=== PATIENT | male | born 1955 | race African-American/Black ===

== ENCOUNTER 2016-06-01 10:36 | Inpatient (IN) | payer OTHER ==
[~2016-06-01] VITALS: Ht 157.5 cm; Wt 100.1 kg
[~2016-06-01 10:36] MED LIST: ADVAIR 250/501 DISK IH; ADVAIR HFA120 INHALA IH; AMIODARONE HCL200 MG PO; ATORVASTATIN CA40 MG PO; BISOPROLOL FUMAR5 MG PO; CALCITRIOL0.25 MCG PO; CARDIZEM CD120 MG PO; CLONIDINE HCL0.1 MG PO; DILTIAZEM 24HR360 M1 PO; FELODIPINE ER5 MG PO; FLONASE16 G1 BOTH NARES; HUMALOG100 UNIT/1 SC; HUMALOG100 UNIT/2 SC; KLOR-CON 1010 ME1 PO; LANTUS 3 M100 UNITS1 SC; LASIX40 MG PO; LEVEMIR100 UNIT/2 SC; LOPRESSOR100 M1 PO; MONTELUKAST SOD10 MG PO; NEURONTIN300 MG PO; PREDNISONE10 MG PO; PREDNISONE50 MG PO; PROAIR HFA8.5 GM IH; PROVENTIL,2.5 MG/3 M IH; SPIRIVA RESPIMAT4 GM IH; XARELTO15 MG PO
[2016-06-01] MEDS ORDERED: BUMETANIDE0.5 MG PO (11:27)
[2016-06-01] MEDS ORDERED: LANTUS 10100 UNITS/ SC (11:28)
[2016-06-01] MEDS ORDERED: HUMALOG100 UNIT/1 SC ×4 (11:28→11:29)
[2016-06-01] MEDS ORDERED: POTASSIUM CHLO10 ME4 PO (11:29)
[2016-06-01 12:05] LABS: HEMATOCRIT 34.1 % (38.0-50.0); MCH 27.5 PG (29.0-34.0); MCHC 31.7 G/DL (30.0-36.0); MCV 86.8 FL (86-99); MEAN PLAT.VOLUME 10.9 uM^3 (9.0-12.4); PLATELET COUNT 168 K/uL (156-360); RBC DIS.WIDTH-CV 18.7 % (11.8-14.6); RBC DIS.WIDTH-SD 58.1 % (39-53); RED BLOOD COUNT 3.93 M/uL (4.00-5.50); WHITE BLOOD COUNT 5.3 K/uL (4.1-10.2)
[2016-06-01 12:24] LABS: CHLORIDE 104 mEq/L (99-109)
[2016-06-01 12:25] LABS: POTASSIUM 5.3 mEq/L (3.7-5.4); SODIUM 139 mEq/L (136-147)
[2016-06-01 12:26] LABS: GLUCOSE 164 mg/dL (70-99)
[2016-06-01 12:28] LABS: ANION GAP 9 MEQ/L (2-14)
[2016-06-01 12:30] LABS: GFR ESTIMATE (CALCULATED) 27 mL/min/
[2016-06-01 12:31] LABS: UREA NITROGEN (BUN) 52 mg/dL (9-23)
[2016-06-01 12:33] LABS: TROP-I INTERPRETATION NEGATIVE; TROPONIN-I 0.07 ng/mL (0.0-0.30)
[2016-06-01 12:37] LABS: BASE EXCESS 1.3 mEq/L (-3 to +3); BICARBONATE 25.9 mEq/L (22-26); CARBOXY HGB 2.3 % (0-5); METHEMOGLOBIN 0.8 % (0-1.5); PO2 75 mm Hg (80-100); pH 7.42 (7.35-7.45)
[2016-06-01 12:38] LABS: COMMENTS - BLOOD GASES A+C+; DEVICE NC; PCO2 40 mm Hg (35-45); SITE LR
[2016-06-01 12:39] LABS: MODE NC; O2 FLOW 5 L/MIN; TOTAL RESP RATE 23 resp/min
[2016-06-01 18:55] LABS: POINT-OF-CARE METER ID UU13113702
[2016-06-01 19:34] VITALS: BP 111/81
[2016-06-01 20:18] VITALS: BP 153/85
[2016-06-01 23:14] LABS: ADD MIUA? YES; BILIRUBIN NEGATIVE; BLOOD NEGATIVE; COLOR YELLOW ((YELLOW)); GLUCOSE (STRIP) NEGATIVE; KETONES NEGATIVE; LEUKOCYTES SMALL; NITRITE NEGATIVE; PROTEIN (STRIP) 100; SPECIFIC GRAVITY 1.021 (1.000-1.030); UROBILINOGEN 0.2 MG/DL (0.2-1.0)
[2016-06-01 23:18] VITALS: BP 148/86
[2016-06-01 23:29] LABS: BACTERIA 1+; CASTS PRESENT /LPF; CRYSTALS NONE SEEN; EPITHELIAL CELLS RARE; HYALINE CASTS 30-35 /LPF; MUCUS 1+; RED BLOOD CELLS NONE SEEN /HPF (0-5); UCUL ADDED? NO
[2016-06-02 03:18] LABS: UR CREATININE CONCENTRATION 128.8 MG/DL
[2016-06-02 03:45] VITALS: BP 165/82
[2016-06-02 05:48] LABS: URINE TOTAL PROTEIN 86 MG/DL (0-10)
[2016-06-02 06:45] LABS: MCH 27.6 PG (29.0-34.0); MCHC 32.4 G/DL (30.0-36.0); MCV 85.2 FL (86-99); MEAN PLAT.VOLUME 11.1 uM^3 (9.0-12.4); PLATELET COUNT 173 K/uL (156-360); RBC DIS.WIDTH-CV 18.3 % (11.8-14.6); RBC DIS.WIDTH-SD 57.2 % (39-53); RED BLOOD COUNT 3.99 M/uL (4.00-5.50); WHITE BLOOD COUNT 5.8 K/uL (4.1-10.2)
[2016-06-02 07:08] LABS: C3 COMPLEMENT 129 MG/DL (58-170); C4 COMPLEMENT 38 MG/DL (10-40)
[2016-06-02 07:08] LABS: ANION GAP 10 MEQ/L (2-14); CHLORIDE 103 MEQ/L (99-109); CREATINE KINASE 289 IU/L (1-294); GFR ESTIMATE (CALCULATED) 28 mL/min/; IRON 16 MCG/DL (35-150); POTASSIUM 4.3 MEQ/L (3.7-5.4); SAMPLE HEMOLYSIS CHECK 0; SAMPLE ICTERIC CHECK 0; SAMPLE LIPEMIA CHECK 0; SODIUM 141 MEQ/L (136-147); UREA NITROGEN (BUN) 56 mg/dL (9-23)
[2016-06-02 07:17] LABS: GLUCOSE 49 mg/dL (70-99)
[2016-06-02 07:20] LABS: Estimated Average Glucose 229 mg/dL (70-123); HEMOGLOBIN A1c (GLYCOHEMOGLOB) 9.6 % HGB (Below 5.7)
[2016-06-02 08:48] LABS: INTACT PARATHYROID HORMONE 163 pg/mL (10-69)
[2016-06-02 08:50] VITALS: BP 164/90
[2016-06-02 10:41] VITALS: BP 141/87
[2016-06-02 12:43] LABS: HPCA INDEX 0.12
[2016-06-02 12:44] LABS: POINT-OF-CARE METER ID UU13113725
[2016-06-02 12:44] LABS: AHBS INDEX 0; HEPATITIS B SURFACE ANTIBODY Nonreactive
[2016-06-02 13:53] LABS: HBSG INDEX 0.16
[2016-06-02 15:53] VITALS: BP 112/65
[2016-06-02 16:07] LABS: POINT-OF-CARE METER ID UU13113725
[2016-06-02 21:00] VITALS: BP 114/85
[2016-06-02 23:25] VITALS: BP 125/80
[2016-06-03 04:24] VITALS: BP 99/57
[2016-06-03 06:28] LABS: POINT-OF-CARE METER ID UU13113725
[2016-06-03 06:54] LABS: POINT-OF-CARE METER ID UU13113725
[2016-06-03 07:12] LABS: POINT-OF-CARE METER ID UU13113725
[2016-06-03 07:17] LABS: MCH 27.8 PG (29.0-34.0); MCHC 32.1 G/DL (30.0-36.0); MCV 86.6 FL (86-99); PLATELET COUNT 155 K/uL (156-360); RBC DIS.WIDTH-CV 18.5 % (11.8-14.6); RBC DIS.WIDTH-SD 58.6 % (39-53); RED BLOOD COUNT 3.81 M/uL (4.00-5.50); WHITE BLOOD COUNT 5.7 K/uL (4.1-10.2)
[2016-06-03 07:27] LABS: EOSINOPHIL (%) 1.8 % (0-5); EOSINOPHIL COUNT 0.1 K/uL (0-0.3); IMMATURE GRANULOCYTE (%) 0.2 % (0.0-0.7); LYMPHOCYTE COUNT 0.9 K/uL (1.0-2.8); MONOCYTE (%) 28.2 % (3-12); MONOCYTE COUNT 1.6 K/uL (0-0.8); NEUTROPHIL (%) 53.1 % (45-76)
[2016-06-03 07:37] VITALS: BP 112/58
[2016-06-03 07:45] LABS: ALKALINE PHOSPHATASE 107 IU/L (3-129); ANION GAP 9 MEQ/L (2-14); CHLORIDE 104 MEQ/L (99-109); GFR ESTIMATE (CALCULATED) 25 mL/min/; GLUCOSE 64 mg/dL (70-99); POTASSIUM 4.9 MEQ/L (3.7-5.4); SAMPLE HEMOLYSIS CHECK 0; SAMPLE ICTERIC CHECK 0; SAMPLE LIPEMIA CHECK 0; SODIUM 140 MEQ/L (136-147); TOTAL BILIRUBIN 0.6 MG/DL (0.0-1.0); UREA NITROGEN (BUN) 64 mg/dL (9-23)
[2016-06-03 08:28] LABS: HEMATOLOGY COMMENT 1 SMEAR COMPATIBLE; USER ID SDF
[2016-06-03 10:51] VITALS: BP 139/80
[2016-06-03] MEDS ORDERED: FLONASE16 G1 BOTH NARES (12:12)
[2016-06-03] MEDS ORDERED: AMIODARONE HCL200 MG PO (12:12)
[2016-06-03 16:52] VITALS: BP 142/91
[2016-06-03 17:01] LABS: POINT-OF-CARE METER ID UU13113725
[2016-06-03 19:41] VITALS: BP 140/89
[2016-06-03 21:40] LABS: POINT-OF-CARE METER ID UU13113725
[2016-06-03 23:25] VITALS: BP 136/81
[2016-06-04 04:02] VITALS: BP 154/100
[2016-06-04 06:02] VITALS: BP 153/92
[2016-06-04 06:15] LABS: POINT-OF-CARE METER ID UU13113725
[2016-06-04 06:56] LABS: POINT-OF-CARE METER ID UU13113725
[2016-06-04 07:21] LABS: MCH 27.3 PG (29.0-34.0); MCHC 31.8 G/DL (30.0-36.0); MCV 85.7 FL (86-99); MEAN PLAT.VOLUME 11.1 uM^3 (9.0-12.4); PLATELET COUNT 165 K/uL (156-360); RBC DIS.WIDTH-CV 18.6 % (11.8-14.6); RBC DIS.WIDTH-SD 58.9 % (39-53); RED BLOOD COUNT 3.85 M/uL (4.00-5.50); WHITE BLOOD COUNT 6.8 K/uL (4.1-10.2)
[2016-06-04 07:41] LABS: ANION GAP 9 MEQ/L (2-14); CHLORIDE 101 MEQ/L (99-109); GFR ESTIMATE (CALCULATED) 27 mL/min/; GLUCOSE 61 mg/dL (70-99); POTASSIUM 4.5 MEQ/L (3.7-5.4); SAMPLE HEMOLYSIS CHECK 0; SAMPLE ICTERIC CHECK 0; SAMPLE LIPEMIA CHECK 0; SODIUM 141 MEQ/L (136-147); UREA NITROGEN (BUN) 69 mg/dL (9-23)
[2016-06-04 07:56] LABS: POINT-OF-CARE METER ID UU13113725
[2016-06-04 08:04] LABS: BASE EXCESS 3.7 mEq/L (-3 to +3); BICARBONATE 30.9 mEq/L (22-26); METHEMOGLOBIN 1.3 % (0-1.5); PCO2 60 mm Hg (35-45); PO2 69 mm Hg (80-100); SITE RR; pH 7.32 (7.35-7.45)
[2016-06-04 08:05] LABS: COMMENTS - BLOOD GASES A+C+; DEVICE NC; O2 FLOW 3 L/MIN; TOTAL RESP RATE 12 resp/min
[2016-06-04 08:13] VITALS: BP 152/100
[2016-06-04 08:16] LABS: ALKALINE PHOSPHATASE 113 IU/L (3-129); TOTAL BILIRUBIN 0.6 MG/DL (0.0-1.0)
[2016-06-04 09:30] VITALS: BP 162/59
[2016-06-04 21:19] LABS: POINT-OF-CARE METER ID UU13113725
[2016-06-04 22:13] LABS: POINT-OF-CARE METER ID UU13113725
[2016-06-04 22:55] VITALS: BP 151/83
[2016-06-04 23:22] LABS: POINT-OF-CARE METER ID UU13113725
[2016-06-05 06:26] LABS: POINT-OF-CARE METER ID UU13113725
[2016-06-05 07:29] LABS: ANION GAP 7 MEQ/L (2-14); CHLORIDE 100 MEQ/L (99-109); GFR ESTIMATE (CALCULATED) 28 mL/min/; POTASSIUM 3.6 MEQ/L (3.7-5.4); SAMPLE HEMOLYSIS CHECK 0; SAMPLE ICTERIC CHECK 0; SAMPLE LIPEMIA CHECK 0; SODIUM 141 MEQ/L (136-147); UREA NITROGEN (BUN) 65 mg/dL (9-23)
[2016-06-05 07:31] LABS: GLUCOSE 134 mg/dL (70-99)
[2016-06-05 08:00] VITALS: BP 155/99
[2016-06-05 17:27] VITALS: BP 143/77
[2016-06-05 21:14] LABS: POINT-OF-CARE METER ID UU13113725
[2016-06-05 23:30] VITALS: BP 134/68
[2016-06-06 06:16] LABS: POINT-OF-CARE METER ID UU13113725
[2016-06-06 07:11] LABS: HEMATOCRIT 32.5 % (38.0-50.0); MCH 26.8 PG (29.0-34.0); MCHC 31.7 G/DL (30.0-36.0); MCV 84.4 FL (86-99); MEAN PLAT.VOLUME 10.7 uM^3 (9.0-12.4); PLATELET COUNT 154 K/uL (156-360); RBC DIS.WIDTH-CV 18.1 % (11.8-14.6); RBC DIS.WIDTH-SD 56.2 % (39-53); RED BLOOD COUNT 3.85 M/uL (4.00-5.50); WHITE BLOOD COUNT 7.1 K/uL (4.1-10.2)
[2016-06-06 07:23] LABS: EOSINOPHIL (%) 0.7 % (0-5); EOSINOPHIL COUNT 0.1 K/uL (0-0.3); IMMATURE GRANULOCYTE (%) 0.1 % (0.0-0.7); LYMPHOCYTE COUNT 1.6 K/uL (1.0-2.8); MONOCYTE (%) 12.5 % (3-12); MONOCYTE COUNT 0.9 K/uL (0-0.8); NEUTROPHIL (%) 64.3 % (45-76); NEUTROPHIL COUNT 4.6 K/uL (1.8-6.4)
[2016-06-06 07:35] LABS: ANION GAP 10 MEQ/L (2-14); CHLORIDE 99 MEQ/L (99-109); POTASSIUM 3.2 MEQ/L (3.7-5.4); SAMPLE HEMOLYSIS CHECK 0; SAMPLE ICTERIC CHECK 0; SAMPLE LIPEMIA CHECK 0; SODIUM 144 MEQ/L (136-147)
[2016-06-06 07:46] LABS: ALKALINE PHOSPHATASE 104 IU/L (3-129); ANION GAP 10 MEQ/L (2-14); CHLORIDE 99 MEQ/L (99-109); POTASSIUM 3.3 MEQ/L (3.7-5.4); SAMPLE HEMOLYSIS CHECK 0; SAMPLE ICTERIC CHECK 0; SAMPLE LIPEMIA CHECK 0; SODIUM 144 MEQ/L (136-147); UREA NITROGEN (BUN) 57 mg/dL (9-23)
[2016-06-06 07:47] LABS: GFR ESTIMATE (CALCULATED) 34 mL/min/; GFR ESTIMATE (CALCULATED) 36 mL/min/; GLUCOSE 82 mg/dL (70-99); TOTAL BILIRUBIN 0.9 MG/DL (0.0-1.0); UREA NITROGEN (BUN) 57 mg/dL (9-23)
[2016-06-06 07:48] LABS: GLUCOSE 82 mg/dL (70-99)
[2016-06-06 08:11] VITALS: BP 136/69
[2016-06-06 16:00] VITALS: BP 146/71
[2016-06-06 20:48] LABS: POINT-OF-CARE METER ID UU13113725
[2016-06-06 23:16] VITALS: BP 156/84
[2016-06-07 06:20] LABS: HEMATOCRIT 35.3 % (38.0-50.0); MCH 26.6 PG (29.0-34.0); MCHC 31.2 G/DL (30.0-36.0); MCV 85.5 FL (86-99); MEAN PLAT.VOLUME 10.2 uM^3 (9.0-12.4); PLATELET COUNT 155 K/uL (156-360); RBC DIS.WIDTH-CV 18.3 % (11.8-14.6); RBC DIS.WIDTH-SD 56.6 % (39-53); RED BLOOD COUNT 4.13 M/uL (4.00-5.50); WHITE BLOOD COUNT 7.4 K/uL (4.1-10.2)
[2016-06-07 06:53] LABS: EOSINOPHIL (%) 1.8 % (0-5); EOSINOPHIL COUNT 0.1 K/uL (0-0.3); IMMATURE GRANULOCYTE (%) 0.3 % (0.0-0.7); MONOCYTE (%) 25.6 % (3-12); MONOCYTE COUNT 1.9 K/uL (0-0.8); NEUTROPHIL (%) 58.6 % (45-76); NEUTROPHIL COUNT 4.3 K/uL (1.8-6.4)
[2016-06-07 06:56] LABS: ALKALINE PHOSPHATASE 106 IU/L (3-129); ANION GAP 11 MEQ/L (2-14); ANION GAP 13 MEQ/L (2-14); CHLORIDE 96 MEQ/L (99-109); CHLORIDE 97 MEQ/L (99-109); GFR ESTIMATE (CALCULATED) 36 mL/min/; MAGNESIUM 1.8 mg/dl (1.3-2.7); SAMPLE HEMOLYSIS CHECK 0; SAMPLE ICTERIC CHECK 0; SAMPLE LIPEMIA CHECK 0; SODIUM 141 MEQ/L (136-147); SODIUM 143 MEQ/L (136-147); UREA NITROGEN (BUN) 56 mg/dL (9-23)
[2016-06-07 06:59] LABS: GLUCOSE 150 mg/dL (70-99); GLUCOSE 151 mg/dL (70-99); TOTAL BILIRUBIN 1.1 MG/DL (0.0-1.0)
[2016-06-07 08:27] VITALS: BP 145/75
[2016-06-07 08:48] LABS: HEMATOLOGY COMMENT 1 SMEAR COMPATIBLE; USER ID LYM
[2016-06-07 11:30] LABS: POINT-OF-CARE METER ID UU13113725
[2016-06-07] MEDS ORDERED: BUMETANIDE1 MG PO (14:59)
[2016-06-07] MEDS ORDERED: K-DUR20 MEQ PO (14:59)
[2016-06-07] MEDS ORDERED: LISINOPRIL2.5 MG PO (14:59)
[2016-06-07] MEDS ORDERED: LOPRESSOR50 MG PO (14:59)
[2016-06-07] MEDS ORDERED: HYDRALAZINE HCL25 MG PO (15:07)
[2016-06-07] MEDS ORDERED: METOLAZONE2.5 MG PO ×2 (16:38→16:40)
== END 2016-06-07 17:58 | disposition home or self-care (01) | DRG 682 ==
LOC: EME 10:36 → 5EAST 13:51 → EDOF 13:51 → 5EAST 19:53
PROVIDERS: Internal Medicine; Nurse Practitioner Adult Health; Nurse Practitioner Family; Pediatrics; Physician Assistant
DX: N17.9 Acute kidney failure, unspecified (principal); I50.33 Acute on chronic diastolic (congestive) heart failure; I13.0 Hypertensive heart and chronic kidney disease with heart failure and stage 1 through stage 4 chronic kidney disease, or unspecified chronic kidney disease; I48.2 Chronic atrial fibrillation; E87.79 Other fluid overload; E11.22 Type 2 diabetes mellitus with diabetic chronic kidney disease; E11.65 Type 2 diabetes mellitus with hyperglycemia; E11.319 Type 2 diabetes mellitus with unspecified diabetic retinopathy without macular edema; E11.40 Type 2 diabetes mellitus with diabetic neuropathy, unspecified; I27.2 Other secondary pulmonary hypertension; Z99.81 Dependence on supplemental oxygen; F17.210 Nicotine dependence, cigarettes, uncomplicated; I25.10 Atherosclerotic heart disease of native coronary artery without angina pectoris; J44.9 Chronic obstructive pulmonary disease, unspecified; G47.30 Sleep apnea, unspecified; N18.3 Chronic kidney disease, stage 3 (moderate); D63.1 Anemia in chronic kidney disease; E78.5 Hyperlipidemia, unspecified; Z86.73 Personal history of transient ischemic attack (TIA), and cerebral infarction without residual deficits; Z79.4 Long term (current) use of insulin; Z90.49 Acquired absence of other specified parts of digestive tract
CPT/HCPCS: 36600; 71020; 80048; 80053; 80069; 81003; 82272; 82306; 82550; 82570; 82607; 82746; 82803; 82948; 83036; 83540; 83735; 83970; 84156; 84443; 84466; 84484; 85025; 85027; 86021 90; 86160; 86334; 86335; 86706; 86803; 87340; 93005; 93306; 94640; 94640 76; 94660; 94799; 99202; 99281; 99285; J1815; J1940; J2405

== ENCOUNTER 2016-09-14 12:12 | Inpatient (IN) | payer OTHER ==
[~2016-09-14] VITALS: Ht 157.5 cm; Wt 115.0 kg
[~2016-09-14 12:12] MED LIST changes: +BUMETANIDE0.5 MG PO; +BUMETANIDE1 MG PO; +HYDRALAZINE HCL25 MG PO; +K-DUR20 MEQ PO; +LANTUS 10100 UNITS/ SC; +LISINOPRIL2.5 MG PO; +LOPRESSOR50 MG PO; +METOLAZONE2.5 MG PO; +POTASSIUM CHLO10 ME4 PO
[2016-09-14 14:01] LABS: HEMATOCRIT 34.2 % (38.0-50.0); MCH 27.5 PG (29.0-34.0); MCHC 31.3 G/DL (30.0-36.0); MCV 87.9 FL (86-99); MEAN PLAT.VOLUME 11.7 uM^3 (9.0-12.4); PLATELET COUNT 144 K/uL (156-360); RBC DIS.WIDTH-CV 21.1 % (11.8-14.6); RBC DIS.WIDTH-SD 65.7 % (39-53); RED BLOOD COUNT 3.89 M/uL (4.00-5.50); WHITE BLOOD COUNT 6.4 K/uL (4.1-10.2)
[2016-09-14 14:09] LABS: CHLORIDE 106 mEq/L (99-109); POTASSIUM 5.4 mEq/L (3.7-5.4); SODIUM 137 mEq/L (136-147)
[2016-09-14 14:13] LABS: ANION GAP 8 MEQ/L (2-14); GLUCOSE 401 mg/dL (70-99)
[2016-09-14 14:14] LABS: TOTAL BILIRUBIN 2.2 mg/dL (0.0-1.0)
[2016-09-14 14:15] LABS: ALKALINE PHOSPHATASE 101 IU/L (3-129); GFR ESTIMATE (CALCULATED) 42 mL/min/
[2016-09-14 14:16] LABS: UREA NITROGEN (BUN) 25 mg/dL (9-23)
[2016-09-14 14:19] LABS: LIPASE 10 U/L (1.0-51.0)
[2016-09-14 16:18] LABS: ADD MIUA? YES; BILIRUBIN NEGATIVE; BLOOD NEGATIVE; COLOR YELLOW ((YELLOW)); GLUCOSE (STRIP) >=500; KETONES NEGATIVE; LEUKOCYTES NEGATIVE; NITRITE NEGATIVE; PROTEIN (STRIP) >=500; SPECIFIC GRAVITY 1.012 (1.000-1.030); UROBILINOGEN 0.2 MG/DL (0.2-1.0)
[2016-09-14 16:41] LABS: AMORPHOUS URATES CRYSTALS 2+; BACTERIA 2+ /HPF; EPITHELIAL CELLS 2+ /HPF; MUCUS NONE SEEN /LPF; RED BLOOD CELLS 0-5 /HPF (0-5); UCUL ADDED? NO; WHITE BLOOD CELLS 0-5 /HPF (0-5)
[2016-09-14 17:40] LABS: BASE EXCESS -3.5 mEq/L (-3 to +3); METHEMOGLOBIN 0.9 % (0-1.5); PCO2 57 mm Hg (35-45); PO2 63 mm Hg (80-100)
[2016-09-14 17:41] LABS: BICARBONATE 24.4 mEq/L (22-26); COMMENTS - BLOOD GASES A+C+; DEVICE NC; O2 FLOW 3 L/MIN; SITE RR; TOTAL RESP RATE 13 resp/min; pH 7.24 (7.35-7.45)
[2016-09-14 18:00] LABS: TROP-I INTERPRETATION NEGATIVE
[2016-09-14 19:35] LABS: POINT-OF-CARE METER ID UU13113702
[2016-09-14] MEDS ORDERED: HALOBETASOL PRO15 GM TP (21:05)
[2016-09-14] MEDS ORDERED: CLINDAMYCIN PHO60 M1 TP (21:06)
[2016-09-14] MEDS ORDERED: TRAMADOL HCL50 MG PO (21:07)
[2016-09-14] MEDS ORDERED: BUMETANIDE1 MG PO (21:10)
[2016-09-14] MEDS ORDERED: BUMETANIDE0.5 MG PO (21:11)
[2016-09-14 21:17] VITALS: BP 144/62
[2016-09-14 21:45] VITALS: BP 131/98
[2016-09-14 22:00] VITALS: BP 126/82
[2016-09-14 22:09] LABS: BASE EXCESS -9.3 mEq/L (-3 to +3); BICARBONATE 17.6 mEq/L (22-26); CARBOXY HGB 2.7 % (0-5); METHEMOGLOBIN 1.4 % (0-1.5); PCO2 41 mm Hg (35-45); PO2 175 mm Hg (80-100); SITE RR; pH 7.24 (7.35-7.45)
[2016-09-14 22:10] LABS: COMMENTS - BLOOD GASES C+; DEVICE VENT; FI02 100 %; INSPIRATION TIME 0.9 seconds; MECHANICAL RATE 20 resp/min; MODE AC/VC+; PEEP 5 CM/H20; TOTAL RESP RATE 20 resp/min
[2016-09-14 22:30] VITALS: BP 116/92
[2016-09-14 23:00] VITALS: BP 114/79
[2016-09-14 23:52] LABS: METH RESISTANT S AUREUS PCR NEGATIVE (NEGATIVE)
[2016-09-14 23:57] LABS: PROBE CHECK PASS; SPECIMEN PROCESSING CONTROL PASS
[2016-09-15] VITALS (18 sets, daily range): BP systolic 95–157; BP diastolic 61–99
[2016-09-15 00:36] LABS: POINT-OF-CARE METER ID UU13113731; POINT-OF-CARE USER ID RADDRS44
[2016-09-15 05:48] LABS: POINT-OF-CARE METER ID UU13113731; POINT-OF-CARE USER ID RADDRS44
[2016-09-15 05:56] LABS: BASE EXCESS -2.5 mEq/L (-3 to +3); BICARBONATE 22.5 mEq/L (22-26); CARBOXY HGB 2.7 % (0-5); METHEMOGLOBIN 1.4 % (0-1.5); PCO2 39 mm Hg (35-45); PO2 79 mm Hg (80-100); SITE RR; pH 7.37 (7.35-7.45)
[2016-09-15 05:57] LABS: COMMENTS - BLOOD GASES C+; DEVICE VENT; FI02 60 %; INSPIRATION TIME 0.9 seconds; MECHANICAL RATE 20 resp/min; MODE ACVC+; PEEP 5 CM/H20; TIDAL VOLUME 500 ML; TOTAL RESP RATE 20 resp/min
[2016-09-15 06:23] LABS: HEMATOCRIT 34.5 % (38.0-50.0); MCH 27.1 PG (29.0-34.0); MCHC 30.4 G/DL (30.0-36.0); MCV 89.1 FL (86-99); MEAN PLAT.VOLUME 11.2 uM^3 (9.0-12.4); NRBC (%) 0.3 /100 WBC (0-0); PLATELET COUNT 129 K/uL (156-360); RBC DIS.WIDTH-CV 21.2 % (11.8-14.6); RED BLOOD COUNT 3.87 M/uL (4.00-5.50)
[2016-09-15 06:25] LABS: WHITE BLOOD COUNT 10.6 K/uL (4.1-10.2)
[2016-09-15 06:41] LABS: ANION GAP 8 MEQ/L (2-14); CHLORIDE 110 MEQ/L (99-109); GLUCOSE 247 mg/dL (70-99); MAGNESIUM 1.6 mg/dl (1.3-2.7); SAMPLE HEMOLYSIS CHECK 0; SAMPLE ICTERIC CHECK 0; SAMPLE LIPEMIA CHECK 0; SODIUM 142 MEQ/L (136-147); UREA NITROGEN (BUN) 30 mg/dL (9-23)
[2016-09-15 06:42] LABS: GFR ESTIMATE (CALCULATED) 27 mL/min/; POTASSIUM 4.2 MEQ/L (3.7-5.4)
[2016-09-15 06:46] LABS: TROP-I INTERPRETATION INDETERMINATE; TROPONIN-I 0.58 ng/mL (0.0-0.30)
[2016-09-15 10:58] LABS: POINT-OF-CARE METER ID UU13113702
[2016-09-15 13:04] LABS: INTER. NORMALIZED RATIO 1.4; PROTHROMBIN TIME 14.7 (9.2-11.2); PTT 30.1 (25-32)
[2016-09-15 13:12] LABS: CK-MB 2.7 ng/mL (0.0-4.9)
[2016-09-15 13:14] LABS: TROP-I INTERPRETATION POSITIVE; TROPONIN-I 0.63 ng/mL (0.0-0.30)
[2016-09-15 13:25] LABS: POINT-OF-CARE METER ID UU14174217
[2016-09-15 13:29] LABS: CREATINE KINASE 74 IU/L (1-294); IRON 14 MCG/DL (35-150); TOTAL CK 74 IU/L (1-294)
[2016-09-15 13:41] LABS: EOSINOPHIL (%) 0.2 % (0-5); IMMATURE GRANULOCYTE (%) 0.7 % (0.0-0.7); IMMATURE GRANULOCYTE COUNT 0.1 K/uL; INSTRUMENT ABS NEUTROPHIL CT 8.3 K/uL; MONOCYTE (%) 10.8 % (3-12); MONOCYTE COUNT 1.2 K/uL (0-0.8); NEUTROPHIL (%) 78.4 % (45-76); NEUTROPHIL COUNT 8.3 K/uL (1.8-6.4)
[2016-09-15 13:56] LABS: FERRITIN 81 NG/ML (22-322)
[2016-09-15 16:05] LABS: AMPHETAMINES QUANT VALUE 0 NG/ML; BARBITUATES QUANT VALUE 0 NG/ML; BENZODIAZEPINES QUANT VALUE 0 NG/ML; BENZODIAZEPINES, URINE SCREEN Negative (200 ng/mL); MARIJUANA QUANT VALUE 0 NG/ML; PHENCYCLIDINE QUANT VALUE 0 NG/ML
[2016-09-15 16:31] LABS: UR CREATININE CONCENTRATION 214.4 MG/DL
[2016-09-15 18:29] LABS: POINT-OF-CARE METER ID UU13113731
[2016-09-15 19:32] LABS: CREATINE KINASE 83 IU/L (1-294); TOTAL CK 83 IU/L (1-294)
[2016-09-15 19:35] LABS: TROP-I INTERPRETATION INDETERMINATE; TROPONIN-I 0.49 ng/mL (0.0-0.30)
[2016-09-15 19:37] LABS: CK-MB 2.2 ng/mL (0.0-4.9)
[2016-09-16] VITALS (23 sets, daily range): BP systolic 92–136; BP diastolic 58–86
[2016-09-16 00:11] LABS: POINT-OF-CARE METER ID UU14174217
[2016-09-16 01:20] LABS: CREATINE KINASE 72 IU/L (1-294); TOTAL CK 72 IU/L (1-294)
[2016-09-16 01:25] LABS: TROP-I INTERPRETATION INDETERMINATE; TROPONIN-I 0.35 ng/mL (0.0-0.30)
[2016-09-16 02:07] LABS: VANCOMYCIN, TROUGH 12.2 MCG/ML (10-20)
[2016-09-16 06:33] LABS: EOSINOPHIL (%) 0 % (0-5); HEMATOCRIT 32.3 % (38.0-50.0); IMMATURE GRANULOCYTE (%) 0.6 % (0.0-0.7); IMMATURE GRANULOCYTE COUNT 0.1 K/uL; INSTRUMENT ABS NEUTROPHIL CT 8.1 K/uL; LYMPHOCYTE COUNT 0.4 K/uL (1.0-2.8); MCH 26.6 PG (29.0-34.0); MCV 88.7 FL (86-99); MEAN PLAT.VOLUME 12.2 uM^3 (9.0-12.4); MONOCYTE COUNT 0.5 K/uL (0-0.8); NEUTROPHIL (%) 90.4 % (45-76); NEUTROPHIL COUNT 8.1 K/uL (1.8-6.4); PLATELET COUNT 120 K/uL (156-360); RBC DIS.WIDTH-CV 21.6 % (11.8-14.6); RBC DIS.WIDTH-SD 69.2 % (39-53); RED BLOOD COUNT 3.64 M/uL (4.00-5.50); WHITE BLOOD COUNT 8.9 K/uL (4.1-10.2)
[2016-09-16 07:01] LABS: TROP-I INTERPRETATION INDETERMINATE; TROPONIN-I 0.33 ng/mL (0.0-0.30)
[2016-09-16 07:27] LABS: INTERNAL CONTROL VALID? YES
[2016-09-16 07:38] LABS: ANION GAP 12 MEQ/L (2-14); CHLORIDE 109 MEQ/L (99-109); CREATINE KINASE 49 IU/L (1-294); GLUCOSE 354 mg/dL (70-99); SAMPLE HEMOLYSIS CHECK 0; SAMPLE ICTERIC CHECK 0; SAMPLE LIPEMIA CHECK 0; SODIUM 142 MEQ/L (136-147); TOTAL CK 49 IU/L (1-294); UREA NITROGEN (BUN) 39 mg/dL (9-23)
[2016-09-16 07:39] LABS: GFR ESTIMATE (CALCULATED) 19 mL/min/
[2016-09-16 08:02] LABS: CK-MB 2.1 ng/mL (0.0-4.9)
[2016-09-16 09:37] LABS: BASE EXCESS -3.9 mEq/L (-3 to +3); BICARBONATE 22.2 mEq/L (22-26); CARBOXY HGB 2.3 % (0-5); COMMENTS - BLOOD GASES A+C+; METHEMOGLOBIN 1.5 % (0-1.5); PCO2 44 mm Hg (35-45); PO2 76 mm Hg (80-100); SITE LR; pH 7.31 (7.35-7.45)
[2016-09-16 09:38] LABS: DEVICE 980 PB; FI02 40 %; MODE TC; PEEP 5 CM/H20; TOTAL RESP RATE 18 resp/min
[2016-09-16 12:00] LABS: BICARBONATE 21.2 mEq/L (22-26); CARBOXY HGB 2.3 % (0-5); METHEMOGLOBIN 1.2 % (0-1.5); PCO2 43 mm Hg (35-45); PO2 73 mm Hg (80-100)
[2016-09-16 12:01] LABS: COMMENTS - BLOOD GASES A+C+; DEVICE 980 PB; FI02 40 %; MODE TC; PEEP 5 CM/H20; SITE LR; TOTAL RESP RATE 20 resp/min
[2016-09-16 13:55] LABS: POINT-OF-CARE METER ID UU13113803; POINT-OF-CARE USER ID 612031313
[2016-09-16 14:59] LABS: POINT-OF-CARE USER ID 612031313
[2016-09-16 17:56] LABS: POINT-OF-CARE USER ID 612031313
[2016-09-16 22:53] LABS: POINT-OF-CARE METER ID UU13113731
[2016-09-17] VITALS (21 sets, daily range): BP systolic 84–135; BP diastolic 63–87
[2016-09-17 02:07] LABS: POINT-OF-CARE METER ID UU13113731
[2016-09-17 05:33] LABS: EOSINOPHIL (%) 0 % (0-5); HEMATOCRIT 33.1 % (38.0-50.0); IMMATURE GRANULOCYTE (%) 0.5 % (0.0-0.7); IMMATURE GRANULOCYTE COUNT 0.1 K/uL; INSTRUMENT ABS NEUTROPHIL CT 14.1 K/uL; LYMPHOCYTE COUNT 0.2 K/uL (1.0-2.8); MCH 27.4 PG (29.0-34.0); MCHC 30.5 G/DL (30.0-36.0); MCV 89.7 FL (86-99); MEAN PLAT.VOLUME 11.7 uM^3 (9.0-12.4); MONOCYTE (%) 5.1 % (3-12); MONOCYTE COUNT 0.8 K/uL (0-0.8); NEUTROPHIL (%) 92.8 % (45-76); NEUTROPHIL COUNT 14.1 K/uL (1.8-6.4); NRBC (%) 0.1 /100 WBC (0-0); PLATELET COUNT 125 K/uL (156-360); RBC DIS.WIDTH-CV 21.4 % (11.8-14.6); RBC DIS.WIDTH-SD 70.5 % (39-53); RED BLOOD COUNT 3.69 M/uL (4.00-5.50)
[2016-09-17 05:34] LABS: WHITE BLOOD COUNT 15.2 K/uL (4.1-10.2)
[2016-09-17 05:56] LABS: ANION GAP 14 MEQ/L (2-14); CHLORIDE 109 MEQ/L (99-109); GFR ESTIMATE (CALCULATED) 16 mL/min/; GLUCOSE 202 mg/dL (70-99); MAGNESIUM 2.3 mg/dl (1.3-2.7); POTASSIUM 3.6 MEQ/L (3.7-5.4); SAMPLE HEMOLYSIS CHECK 0; SAMPLE ICTERIC CHECK 0; SAMPLE LIPEMIA CHECK 0; SODIUM 146 MEQ/L (136-147); UREA NITROGEN (BUN) 53 mg/dL (9-23)
[2016-09-17 10:07] LABS: CARBOXY HGB 2.3 % (0-5); METHEMOGLOBIN 1.4 % (0-1.5); PO2 79 mm Hg (80-100)
[2016-09-17 10:09] LABS: COMMENTS - BLOOD GASES AC+; PCO2 51 mm Hg (35-45); SITE LR
[2016-09-17 10:10] LABS: CONTINUOUS POS AIRWAY PRESSURE 5 cm H2O; DEVICE 980 VENTILATOR; FI02 50 %; MODE TUBE COMPENSATION; TOTAL RESP RATE 11 resp/min; pH 7.28 (7.35-7.45)
[2016-09-17 23:45] LABS: POINT-OF-CARE METER ID UU14174217
[2016-09-18] VITALS (26 sets, daily range): BP systolic 0–178; BP diastolic 0–115
[2016-09-18 02:21] LABS: POINT-OF-CARE METER ID UU13113731
[2016-09-18 05:57] LABS: ANION GAP 10 MEQ/L (2-14); CHLORIDE 109 MEQ/L (99-109); GFR ESTIMATE (CALCULATED) 14 mL/min/; GLUCOSE 261 mg/dL (70-99); MAGNESIUM 2.2 mg/dl (1.3-2.7); POTASSIUM 3.9 MEQ/L (3.7-5.4); SAMPLE HEMOLYSIS CHECK 0; SAMPLE ICTERIC CHECK 0; SAMPLE LIPEMIA CHECK 0; SODIUM 144 MEQ/L (136-147); UREA NITROGEN (BUN) 60 mg/dL (9-23)
[2016-09-18 06:10] LABS: POINT-OF-CARE METER ID UU13113731
[2016-09-18 06:29] LABS: EOSINOPHIL (%) 0 % (0-5); HEMATOCRIT 30.1 % (38.0-50.0); IMMATURE GRANULOCYTE (%) 0.7 % (0.0-0.7); IMMATURE GRANULOCYTE COUNT 0.1 K/uL; INSTRUMENT ABS NEUTROPHIL CT 9.1 K/uL; LYMPHOCYTE COUNT 0.2 K/uL (1.0-2.8); MCH 28.4 PG (29.0-34.0); MCHC 31.6 G/DL (30.0-36.0); MCV 89.9 FL (86-99); MEAN PLAT.VOLUME 12.2 uM^3 (9.0-12.4); MONOCYTE (%) 5.2 % (3-12); MONOCYTE COUNT 0.5 K/uL (0-0.8); NEUTROPHIL (%) 92.5 % (45-76); NEUTROPHIL COUNT 9.1 K/uL (1.8-6.4); NRBC (%) 0.6 /100 WBC (0-0); PLATELET COUNT 117 K/uL (156-360); RBC DIS.WIDTH-SD 71.7 % (39-53); RED BLOOD COUNT 3.35 M/uL (4.00-5.50)
[2016-09-18 06:35] LABS: WHITE BLOOD COUNT 9.9 K/uL (4.1-10.2)
[2016-09-18 11:57] LABS: BASE EXCESS -0.9 mEq/L (-3 to +3); BICARBONATE 25.3 mEq/L (22-26); CARBOXY HGB 2.2 % (0-5); METHEMOGLOBIN 1.4 % (0-1.5); PCO2 48 mm Hg (35-45); PO2 78 mm Hg (80-100); SITE RR; pH 7.33 (7.35-7.45)
[2016-09-18 11:58] LABS: COMMENTS - BLOOD GASES AC+; CONTINUOUS POS AIRWAY PRESSURE 5 cm H2O; DEVICE 980 VENTILATOR; FI02 50 %; MODE TUBE COMPENSATION; TOTAL RESP RATE 14 resp/min
[2016-09-18 23:23] LABS: C DIFF TOXIN NEGATIVE (NEGATIVE)
[2016-09-18 23:47] LABS: PROBE CHECK PASS; SPECIMEN PROCESSING CONTROL PASS
[2016-09-19] VITALS (15 sets, daily range): BP systolic 122–160; BP diastolic 59–120
[2016-09-19 02:22] LABS: POINT-OF-CARE METER ID UU14174217
[2016-09-19 06:54] LABS: EOSINOPHIL (%) 0 % (0-5); HEMATOCRIT 31.9 % (38.0-50.0); IMMATURE GRANULOCYTE (%) 1.2 % (0.0-0.7); IMMATURE GRANULOCYTE COUNT 0.1 K/uL; INSTRUMENT ABS NEUTROPHIL CT 8.5 K/uL; MCH 27.2 PG (29.0-34.0); MCV 87.6 FL (86-99); MEAN PLAT.VOLUME 11.9 uM^3 (9.0-12.4); MONOCYTE (%) 4.4 % (3-12); MONOCYTE COUNT 0.4 K/uL (0-0.8); NEUTROPHIL (%) 94.1 % (45-76); NEUTROPHIL COUNT 8.5 K/uL (1.8-6.4); NRBC (%) 2.5 /100 WBC (0-0); PLATELET COUNT 107 K/uL (156-360); RBC DIS.WIDTH-CV 21.2 % (11.8-14.6); RBC DIS.WIDTH-SD 68.7 % (39-53); RED BLOOD COUNT 3.64 M/uL (4.00-5.50)
[2016-09-19 07:51] LABS: POINT-OF-CARE METER ID UU14174217
[2016-09-19 08:34] LABS: ANION GAP 15 MEQ/L (2-14); CHLORIDE 106 MEQ/L (99-109); GFR ESTIMATE (CALCULATED) 13 mL/min/; GLUCOSE 168 mg/dL (70-99); MAGNESIUM 2.3 mg/dl (1.3-2.7); POTASSIUM 4.5 MEQ/L (3.7-5.4); SAMPLE HEMOLYSIS CHECK 0; SAMPLE ICTERIC CHECK 0; SAMPLE LIPEMIA CHECK 0; SODIUM 144 MEQ/L (136-147); UREA NITROGEN (BUN) 72 mg/dL (9-23)
[2016-09-19 11:52] LABS: POINT-OF-CARE METER ID UU14174217
[2016-09-19 15:37] LABS: POINT-OF-CARE METER ID UU14162636
[2016-09-19 17:46] LABS: POINT-OF-CARE METER ID UU14162636
[2016-09-20] VITALS (8 sets, daily range): BP systolic 160–201; BP diastolic 70–146
[2016-09-20 03:55] LABS: BASE EXCESS -3.9 mEq/L (-3 to +3); BICARBONATE 21.6 mEq/L (22-26); CARBOXY HGB 2.3 % (0-5); METHEMOGLOBIN 1.7 % (0-1.5); PO2 81 mm Hg (80-100); pH 7.34 (7.35-7.45)
[2016-09-20 03:56] LABS: COMMENTS - BLOOD GASES C+A+; DEVICE NC; O2 FLOW 3.5 L/MIN; PCO2 40 mm Hg (35-45); SITE RR
[2016-09-20 07:10] LABS: EOSINOPHIL (%) 0 % (0-5); HEMATOCRIT 35.8 % (38.0-50.0); IMMATURE GRANULOCYTE (%) 0.8 % (0.0-0.7); IMMATURE GRANULOCYTE COUNT 0.1 K/uL; INSTRUMENT ABS NEUTROPHIL CT 7.8 K/uL; LYMPHOCYTE COUNT 0.1 K/uL (1.0-2.8); MCH 26.7 PG (29.0-34.0); MCV 86.3 FL (86-99); MEAN PLAT.VOLUME 11.2 uM^3 (9.0-12.4); MONOCYTE (%) 8.6 % (3-12); MONOCYTE COUNT 0.8 K/uL (0-0.8); NEUTROPHIL (%) 89.4 % (45-76); NEUTROPHIL COUNT 7.8 K/uL (1.8-6.4); NRBC (%) 6.3 /100 WBC (0-0); PLATELET COUNT 125 K/uL (156-360); RBC DIS.WIDTH-CV 21.2 % (11.8-14.6); RBC DIS.WIDTH-SD 66.6 % (39-53); RED BLOOD COUNT 4.15 M/uL (4.00-5.50); WHITE BLOOD COUNT 8.7 K/uL (4.1-10.2)
[2016-09-20 07:57] LABS: ANION GAP 14 MEQ/L (2-14); CHLORIDE 102 MEQ/L (99-109); GFR ESTIMATE (CALCULATED) 13 mL/min/; GLUCOSE 61 mg/dL (70-99); MAGNESIUM 2.4 mg/dl (1.3-2.7); POTASSIUM 4.3 MEQ/L (3.7-5.4); SAMPLE HEMOLYSIS CHECK 0; SAMPLE ICTERIC CHECK 0; SAMPLE LIPEMIA CHECK 0; SODIUM 140 MEQ/L (136-147); UREA NITROGEN (BUN) 84 mg/dL (9-23)
[2016-09-20 10:12] LABS: POINT-OF-CARE METER ID UU13113781
[2016-09-20 14:12] LABS: POINT-OF-CARE METER ID UU13113781
[2016-09-20 14:52] LABS: BASE EXCESS -1.3 mEq/L (-3 to +3); BICARBONATE 23.7 mEq/L (22-26); CARBOXY HGB 2.5 % (0-5); COMMENTS - BLOOD GASES A+C+; DEVICE NC; METHEMOGLOBIN 1.2 % (0-1.5); O2 FLOW 3 L/MIN; PCO2 40 mm Hg (35-45); PO2 70 mm Hg (80-100); SITE RR; pH 7.38 (7.35-7.45)
[2016-09-20 16:32] LABS: POINT-OF-CARE METER ID UU13113781
[2016-09-21 00:20] VITALS: BP 168/99
[2016-09-21 04:40] VITALS: BP 165/90
[2016-09-21 06:16] LABS: EOSINOPHIL (%) 0 % (0-5); HEMATOCRIT 33.2 % (38.0-50.0); IMMATURE GRANULOCYTE (%) 1.4 % (0.0-0.7); IMMATURE GRANULOCYTE COUNT 0.1 K/uL; INSTRUMENT ABS NEUTROPHIL CT 7.3 K/uL; LYMPHOCYTE COUNT 0.1 K/uL (1.0-2.8); MCH 26.7 PG (29.0-34.0); MCHC 31.3 G/DL (30.0-36.0); MCV 85.1 FL (86-99); MEAN PLAT.VOLUME 11.9 uM^3 (9.0-12.4); MONOCYTE (%) 9.6 % (3-12); MONOCYTE COUNT 0.8 K/uL (0-0.8); NEUTROPHIL (%) 87.7 % (45-76); NEUTROPHIL COUNT 7.3 K/uL (1.8-6.4); NRBC (%) 5.4 /100 WBC (0-0); PLATELET COUNT 120 K/uL (156-360); RBC DIS.WIDTH-CV 20.8 % (11.8-14.6); RBC DIS.WIDTH-SD 63.7 % (39-53); WHITE BLOOD COUNT 8.4 K/uL (4.1-10.2)
[2016-09-21 06:32] LABS: ANION GAP 15 MEQ/L (2-14); CHLORIDE 100 MEQ/L (99-109); GFR ESTIMATE (CALCULATED) 13 mL/min/; MAGNESIUM 2.3 mg/dl (1.3-2.7); SAMPLE HEMOLYSIS CHECK 0; SAMPLE ICTERIC CHECK 0; SAMPLE LIPEMIA CHECK 0; SODIUM 142 MEQ/L (136-147); UREA NITROGEN (BUN) 99 mg/dL (9-23)
[2016-09-21 06:33] LABS: GLUCOSE 166 mg/dL (70-99)
[2016-09-21 07:55] VITALS: BP 182/109
[2016-09-21 07:55] LABS: POINT-OF-CARE METER ID UU13113781
[2016-09-21 11:16] LABS: POINT-OF-CARE METER ID UU13113781
[2016-09-21 11:18] VITALS: BP 151/82
[2016-09-21 15:56] VITALS: BP 174/105
[2016-09-21 16:46] LABS: GLUCOSE 316 mg/dL (70-99)
[2016-09-21 19:30] VITALS: BP 160/90
[2016-09-21 21:01] LABS: POINT-OF-CARE METER ID UU14174216
[2016-09-22] VITALS (7 sets, daily range): BP systolic 143–192; BP diastolic 84–101
[2016-09-22 04:03] LABS: INTERNAL CONTROL VALID? YES
[2016-09-22 06:41] LABS: CHLORIDE 102 mEq/L (99-109); POTASSIUM 3.5 mEq/L (3.7-5.4); SODIUM 145 mEq/L (136-147)
[2016-09-22 06:42] LABS: MAGNESIUM 2.1 mg/dL (1.3-2.7)
[2016-09-22 06:45] LABS: ANION GAP 14 MEQ/L (2-14)
[2016-09-22 06:47] LABS: GFR ESTIMATE (CALCULATED) 15 mL/min/
[2016-09-22 06:52] LABS: GLUCOSE 55 mg/dL (70-99); UREA NITROGEN (BUN) 103 mg/dL (9-23)
[2016-09-22 07:15] LABS: EOSINOPHIL (%) 0 % (0-5); HEMATOCRIT 32.9 % (38.0-50.0); IMMATURE GRANULOCYTE (%) 2.1 % (0.0-0.7); IMMATURE GRANULOCYTE COUNT 0.2 K/uL; INSTRUMENT ABS NEUTROPHIL CT 9.8 K/uL; LYMPHOCYTE COUNT 0.3 K/uL (1.0-2.8); MCH 26.7 PG (29.0-34.0); MCHC 31.6 G/DL (30.0-36.0); MCV 84.6 FL (86-99); MONOCYTE (%) 8.5 % (3-12); NEUTROPHIL (%) 86.8 % (45-76); NEUTROPHIL COUNT 9.8 K/uL (1.8-6.4); NRBC (%) 3.6 /100 WBC (0-0); RBC DIS.WIDTH-CV 21.1 % (11.8-14.6); RBC DIS.WIDTH-SD 62.8 % (39-53); RED BLOOD COUNT 3.89 M/uL (4.00-5.50)
[2016-09-22 07:22] LABS: WHITE BLOOD COUNT 11.3 K/uL (4.1-10.2)
[2016-09-22 08:05] LABS: INTACT PARATHYROID HORMONE 141 pg/mL (10-69)
[2016-09-22 08:09] LABS: MEAN PLAT.VOLUME 11.6 uM^3 (9.0-12.4); PLAT.SUFFICIENCY DECREASED; PLATELET COUNT 134 K/uL (156-360)
[2016-09-22 11:29] LABS: POINT-OF-CARE METER ID UU14174216
[2016-09-22 14:57] LABS: POINT-OF-CARE METER ID UU13113781
[2016-09-22 16:49] LABS: POINT-OF-CARE USER ID ENVKC36
[2016-09-23 01:24] VITALS: BP 154/80
[2016-09-23 05:51] VITALS: BP 169/80
[2016-09-23 06:49] LABS: EOSINOPHIL (%) 0 % (0-5); HEMATOCRIT 33.5 % (38.0-50.0); IMMATURE GRANULOCYTE (%) 1.7 % (0.0-0.7); IMMATURE GRANULOCYTE COUNT 0.2 K/uL; LYMPHOCYTE COUNT 0.2 K/uL (1.0-2.8); MCH 26.9 PG (29.0-34.0); MCHC 31.6 G/DL (30.0-36.0); MEAN PLAT.VOLUME 11.8 uM^3 (9.0-12.4); MONOCYTE (%) 10.1 % (3-12); MONOCYTE COUNT 1.2 K/uL (0-0.8); NEUTROPHIL (%) 86.3 % (45-76); NRBC (%) 2.6 /100 WBC (0-0); PLATELET COUNT 140 K/uL (156-360); RBC DIS.WIDTH-CV 21.4 % (11.8-14.6); RBC DIS.WIDTH-SD 63.1 % (39-53); RED BLOOD COUNT 3.94 M/uL (4.00-5.50); WHITE BLOOD COUNT 11.5 K/uL (4.1-10.2)
[2016-09-23 07:11] LABS: ANION GAP 13 MEQ/L (2-14); CHLORIDE 98 MEQ/L (99-109); GFR ESTIMATE (CALCULATED) 17 mL/min/; MAGNESIUM 2.2 mg/dl (1.3-2.7); POTASSIUM 3.7 MEQ/L (3.7-5.4); SAMPLE HEMOLYSIS CHECK 0; SAMPLE ICTERIC CHECK 0; SAMPLE LIPEMIA CHECK 0; SODIUM 141 MEQ/L (136-147)
[2016-09-23 07:12] LABS: GLUCOSE 322 mg/dL (70-99)
[2016-09-23 07:13] LABS: UREA NITROGEN (BUN) 102 mg/dL (9-23)
[2016-09-23 08:03] LABS: POINT-OF-CARE METER ID UU14174216
[2016-09-23] MEDS ORDERED: DOCUSATE SODIU100 MG PO (08:23)
[2016-09-23] MEDS ORDERED: FAMOTIDINE20 MG PO (08:23)
[2016-09-23] MEDS ORDERED: NABI650T PO (08:23)
[2016-09-23] MEDS ORDERED: ASPIRIN81 M2 PO (08:23)
[2016-09-23] MEDS ORDERED: NOVOLOG PE100 UNITS/ SC (08:23)
[2016-09-23] MEDS ORDERED: CALCIUM ACETAT667 MG PO (08:23)
[2016-09-23] MEDS ORDERED: LEVEMIR100 UNIT/2 SC (08:23)
[2016-09-23] MEDS ORDERED: APRESOLINE50 MG PO (08:23)
[2016-09-23] MEDS ORDERED: CLONIDINE HCL0.1 MG PO (08:23)
[2016-09-23] MEDS ORDERED: AMLODIPINE BESYL5 MG PO (08:23)
[2016-09-23] MEDS ORDERED: KENALOG,ARISTOC15 G2 TP (08:23)
[2016-09-23 08:34] VITALS: BP 150/90
[2016-09-23] MEDS ORDERED: METOPROLOL TART25 MG PO (08:45)
[2016-09-23] MEDS ORDERED: MILLIPRED5 MG PO (08:45)
[2016-09-23 11:39] VITALS: BP 142/79
== END 2016-09-23 16:00 | DRG 871 ==
LOC: EME 12:12 → EDOF 20:08 → 4WEST 20:08 → 4EAST 09-19 21:45
PROVIDERS: Emergency Medicine; Internal Medicine; Internal Medicine Nephrology; Internal Medicine Pulmonary Disease; Pediatrics; Surgery Surgical Critical Care
PROC: 5A1945Z Respiratory Ventilation, 24-96 Consecutive Hours (ICD-10-PCS; principal; 2016-09-14)
PROC: 06HM33Z Insertion of Infusion Device into Right Femoral Vein, Percutaneous Approach (ICD-10-PCS; principal; 2016-09-14)
PROC: 0BH17EZ Insertion of Endotracheal Airway into Trachea, Via Natural or Artificial Opening (ICD-10-PCS; principal; 2016-09-14)
PROC: 5A09357 Assistance with Respiratory Ventilation, Less than 24 Consecutive Hours, Continuous Positive Airway Pressure (ICD-10-PCS; 2016-09-20)
DX: A41.9 Sepsis, unspecified organism (principal); J96.01 Acute respiratory failure with hypoxia; N17.0 Acute kidney failure with tubular necrosis; I50.33 Acute on chronic diastolic (congestive) heart failure; R18.8 Other ascites; J90 Pleural effusion, not elsewhere classified; J44.1 Chronic obstructive pulmonary disease with (acute) exacerbation; N18.4 Chronic kidney disease, stage 4 (severe); N25.81 Secondary hyperparathyroidism of renal origin; Z68.41 Body mass index [BMI] 40.0-44.9, adult; E87.2 Acidosis; I13.0 Hypertensive heart and chronic kidney disease with heart failure and stage 1 through stage 4 chronic kidney disease, or unspecified chronic kidney disease; I95.9 Hypotension, unspecified; G47.33 Obstructive sleep apnea (adult) (pediatric); I48.2 Chronic atrial fibrillation; J45.909 Unspecified asthma, uncomplicated; E78.5 Hyperlipidemia, unspecified; E11.22 Type 2 diabetes mellitus with diabetic chronic kidney disease; F17.210 Nicotine dependence, cigarettes, uncomplicated; E11.319 Type 2 diabetes mellitus with unspecified diabetic retinopathy without macular edema; R00.1 Bradycardia, unspecified; E83.42 Hypomagnesemia; I27.2 Other secondary pulmonary hypertension; E86.1 Hypovolemia; E87.6 Hypokalemia; D50.9 Iron deficiency anemia, unspecified; D63.1 Anemia in chronic kidney disease; E11.65 Type 2 diabetes mellitus with hyperglycemia; I48.0 Paroxysmal atrial fibrillation; L30.9 Dermatitis, unspecified; E66.9 Obesity, unspecified; E83.39 Other disorders of phosphorus metabolism; E87.8 Other disorders of electrolyte and fluid balance, not elsewhere classified; E11.42 Type 2 diabetes mellitus with diabetic polyneuropathy; R41.0 Disorientation, unspecified; Z91.19 Patient's noncompliance with other medical treatment and regimen; Z99.81 Dependence on supplemental oxygen; Z84.1 Family history of disorders of kidney and ureter; Z82.49 Family history of ischemic heart disease and other diseases of the circulatory system; Z79.4 Long term (current) use of insulin; Z86.73 Personal history of transient ischemic attack (TIA), and cerebral infarction without residual deficits; Z90.49 Acquired absence of other specified parts of digestive tract; Z09 Encounter for follow-up examination after completed treatment for conditions other than malignant neoplasm; Z82.3 Family history of stroke; Z83.3 Family history of diabetes mellitus
CPT/HCPCS: 36600; 70450; 71010; 74176; 80048; 80053; 80202; 80306 90; 81003; 82272; 82330; 82550; 82550 91; 82553; 82570; 82728; 82803; 82948; 83540; 83605; 83690; 83735; 83970; 84100; 84156; 84300; 84466; 84484; 84999; 85025; 85027; 85610; 85730; 87040; 87070; 87086; 87205; 87449; 87493; 87641; 93005; 93306; 94002; 94003; 94640; 94640 76; 94644; 94645; 94660; 94760; 94799; 97530 GO; 97530 GP; 99202; 99281; 99285; J0330; J0461; J0696; J0881; J1630; J1644; J1756; J1815; J1940; J2270; J2405; J2543; J2704; J2920; J2930; J3010; J3370; J3475; J7030; J7040; J7050; S0028

== ENCOUNTER 2016-10-03 23:29 | Inpatient (IN) | payer OTHER ==
[~2016-10-03] VITALS: Ht 157.5 cm; Wt 104.0 kg
[~2016-10-03 23:29] MED LIST changes: +AMLODIPINE BESYL5 MG PO; +APRESOLINE50 MG PO; +ASPIRIN81 M2 PO; +CALCIUM ACETAT667 MG PO; +CLINDAMYCIN PHO60 M1 TP; +DOCUSATE SODIU100 MG PO; +FAMOTIDINE20 MG PO; +HALOBETASOL PRO15 GM TP; +KENALOG,ARISTOC15 G2 TP; +METOPROLOL TART25 MG PO; +MILLIPRED5 MG PO; +NABI650T PO; +NOVOLOG PE100 UNITS/ SC; +TRAMADOL HCL50 MG PO
[2016-10-04 00:26] LABS: HEMATOCRIT 31.7 % (38.0-50.0); MCH 28.3 PG (29.0-34.0); MCHC 31.5 G/DL (30.0-36.0); MEAN PLAT.VOLUME 10.9 uM^3 (9.0-12.4); PLATELET COUNT 104 K/uL (156-360); RBC DIS.WIDTH-CV 26.1 % (11.8-14.6); RBC DIS.WIDTH-SD 83.5 % (39-53); RED BLOOD COUNT 3.53 M/uL (4.00-5.50)
[2016-10-04 00:27] LABS: MCV 89.8 FL (86-99); WHITE BLOOD COUNT 18.9 K/uL (4.1-10.2)
[2016-10-04 00:36] LABS: CHLORIDE 104 mEq/L (99-109); POTASSIUM 3.3 mEq/L (3.7-5.4); SODIUM 147 mEq/L (136-147)
[2016-10-04 00:39] LABS: ANION GAP 14 MEQ/L (2-14); GLUCOSE 95 mg/dL (70-99)
[2016-10-04 00:40] LABS: TOTAL BILIRUBIN 1.3 mg/dL (0.0-1.0)
[2016-10-04 00:42] LABS: ALKALINE PHOSPHATASE 90 IU/L (3-129); GFR ESTIMATE (CALCULATED) 27 mL/min/
[2016-10-04 00:43] LABS: UREA NITROGEN (BUN) 66 mg/dL (9-23)
[2016-10-04 00:45] LABS: LIPASE 40 U/L (1.0-51.0); TROP-I INTERPRETATION INDETERMINATE
[2016-10-04 00:48] LABS: INTER. NORMALIZED RATIO 1.3; PROTHROMBIN TIME 13.8 (9.2-11.2)
[2016-10-04 00:51] LABS: POINT-OF-CARE METER ID UU14100415; POINT-OF-CARE USER ID 608261302
[2016-10-04 00:52] LABS: PTT 32.1 (25-32)
[2016-10-04 02:35] LABS: ADD MIUA? YES; BILIRUBIN NEGATIVE; BLOOD SMALL; COLOR STRAW ((YELLOW)); GLUCOSE (STRIP) 50; KETONES NEGATIVE; LEUKOCYTES NEGATIVE; NITRITE NEGATIVE; PROTEIN (STRIP) 30; SPECIFIC GRAVITY 1.009 (1.000-1.030); UROBILINOGEN 0.2 MG/DL (0.2-1.0)
[2016-10-04 02:38] LABS: BACTERIA RARE /HPF; EPITHELIAL CELLS RARE /HPF; HYALINE CASTS 0-5 /LPF; MUCUS TRACE /LPF; RED BLOOD CELLS 0-5 /HPF (0-5); UCUL ADDED? NO; WHITE BLOOD CELLS 0-5 /HPF (0-5)
[2016-10-04 03:56] LABS: POINT-OF-CARE METER ID UU14100415
[2016-10-04 05:51] LABS: POINT-OF-CARE METER ID UU14100415
[2016-10-04 07:04] LABS: POINT-OF-CARE METER ID UU14100415
[2016-10-04 08:17] LABS: POINT-OF-CARE METER ID UU14100415
[2016-10-04 09:21] LABS: POINT-OF-CARE METER ID UU14100415
[2016-10-04 10:11] LABS: POINT-OF-CARE METER ID UU14100415
[2016-10-04 10:30] VITALS: BP 116/77
[2016-10-04 11:38] LABS: POINT-OF-CARE METER ID UU14174216
[2016-10-04 11:53] VITALS: BP 174/153
[2016-10-04] MEDS ORDERED: BUMETANIDE1 MG PO (15:36)
[2016-10-04] MEDS ORDERED: KLOR-CON M2020 MEQ PO (15:36)
[2016-10-04] MEDS ORDERED: LASIX80 MG PO (15:37)
[2016-10-04] MEDS ORDERED: NYSTOP60 GM TP (15:38)
[2016-10-04] MEDS ORDERED: LASIX40 MG PO (15:38)
[2016-10-04] MEDS ORDERED: FLOMAX0.4 MG PO (15:39)
[2016-10-04] MEDS ORDERED: LOTRIMIN AF24 GM TP (15:39)
[2016-10-04] MEDS ORDERED: ROCEPHIN1000 MG IV (15:40)
[2016-10-04] MEDS ORDERED: MILK OF MAGNESI10 ML PO (15:41)
[2016-10-04] MEDS ORDERED: DULCOLAX10 MG PR (15:42)
[2016-10-04] MEDS ORDERED: METOPROLOL TART25 MG PO (15:43)
[2016-10-04] MEDS ORDERED: LOPRESSOR50 MG PO (15:43)
[2016-10-04 16:24] LABS: C DIFF TOXIN POSITIVE (NEGATIVE)
[2016-10-04 16:26] LABS: PROBE CHECK PASS
[2016-10-04 16:43] VITALS: BP 135/92
[2016-10-04 16:46] LABS: POINT-OF-CARE METER ID UU14174216
[2016-10-04 20:00] VITALS: BP 134/50
[2016-10-04 23:55] VITALS: BP 109/68
[2016-10-05] VITALS (16 sets, daily range): BP systolic 74–123; BP diastolic 50–76
[2016-10-05 04:45] LABS: POINT-OF-CARE METER ID UU14174216
[2016-10-05 06:43] LABS: HEMATOCRIT 28.7 % (38.0-50.0); MCH 28.5 PG (29.0-34.0); MCHC 31.4 G/DL (30.0-36.0); MCV 90.8 FL (86-99); MEAN PLAT.VOLUME 11.5 uM^3 (9.0-12.4); PLATELET COUNT 92 K/uL (156-360); RBC DIS.WIDTH-CV 25.3 % (11.8-14.6); RBC DIS.WIDTH-SD 83.1 % (39-53); RED BLOOD COUNT 3.16 M/uL (4.00-5.50)
[2016-10-05 06:50] LABS: ALKALINE PHOSPHATASE 79 IU/L (3-129); ANION GAP 9 MEQ/L (2-14); CHLORIDE 105 MEQ/L (99-109); GFR ESTIMATE (CALCULATED) 26 mL/min/; SAMPLE HEMOLYSIS CHECK 0; SAMPLE ICTERIC CHECK 0; SAMPLE LIPEMIA CHECK 0; SODIUM 143 MEQ/L (136-147); TOTAL BILIRUBIN 1.1 MG/DL (0.0-1.0); UREA NITROGEN (BUN) 62 mg/dL (9-23)
[2016-10-05 06:52] LABS: GLUCOSE 147 mg/dL (70-99); POTASSIUM 4.1 MEQ/L (3.7-5.4)
[2016-10-05 06:55] LABS: WHITE BLOOD COUNT 7.7 K/uL (4.1-10.2)
[2016-10-05 08:09] LABS: POINT-OF-CARE METER ID UU14174216
[2016-10-05 11:11] LABS: TROP-I INTERPRETATION INDETERMINATE; TROPONIN-I 0.32 ng/mL (0.0-0.30)
[2016-10-05 12:01] LABS: POINT-OF-CARE METER ID UU14174216
[2016-10-05 16:47] LABS: POINT-OF-CARE METER ID UU14174216
[2016-10-05 17:34] LABS: TROP-I INTERPRETATION INDETERMINATE; TROPONIN-I 0.31 ng/mL (0.0-0.30)
[2016-10-05 19:31] LABS: IRON 21 MCG/DL (35-150)
[2016-10-05 19:41] LABS: FERRITIN 139 NG/ML (22-322)
[2016-10-05 20:33] LABS: POINT-OF-CARE METER ID UU14174216
[2016-10-06] VITALS (7 sets, daily range): BP systolic 98–133; BP diastolic 57–83
[2016-10-06 00:24] LABS: POINT-OF-CARE METER ID UU14174216
[2016-10-06 01:01] LABS: TROP-I INTERPRETATION NEGATIVE; TROPONIN-I 0.29 ng/mL (0.0-0.30)
[2016-10-06 04:02] LABS: POINT-OF-CARE METER ID UU14174216
[2016-10-06 04:59] LABS: HEMATOCRIT 29.1 % (38.0-50.0); MCH 28.8 PG (29.0-34.0); MCHC 31.6 G/DL (30.0-36.0); MCV 90.9 FL (86-99); MEAN PLAT.VOLUME 11.1 uM^3 (9.0-12.4); PLATELET COUNT 100 K/uL (156-360); RBC DIS.WIDTH-CV 25.2 % (11.8-14.6); RBC DIS.WIDTH-SD 81.5 % (39-53); WHITE BLOOD COUNT 5.6 K/uL (4.1-10.2)
[2016-10-06 05:19] LABS: CHLORIDE 106 mEq/L (99-109); POTASSIUM 4.4 mEq/L (3.7-5.4); SODIUM 142 mEq/L (136-147)
[2016-10-06 05:21] LABS: GLUCOSE 206 mg/dL (70-99)
[2016-10-06 05:23] LABS: ANION GAP 10 MEQ/L (2-14)
[2016-10-06 05:25] LABS: ALKALINE PHOSPHATASE 83 IU/L (3-129)
[2016-10-06 05:26] LABS: UREA NITROGEN (BUN) 68 mg/dL (9-23)
[2016-10-06 05:30] LABS: GFR ESTIMATE (CALCULATED) 20 mL/min/; TOTAL BILIRUBIN 0.9 mg/dL (0.0-1.0)
[2016-10-06 06:03] LABS: EOSINOPHIL (%) 1.8 % (0-5); EOSINOPHIL COUNT 0.1 K/uL (0-0.3); IMMATURE GRANULOCYTE (%) 0.4 % (0.0-0.7); INSTRUMENT ABS NEUTROPHIL CT 3.8 K/uL; LYMPHOCYTE COUNT 0.6 K/uL (1.0-2.8); MONOCYTE (%) 19.9 % (3-12); MONOCYTE COUNT 1.1 K/uL (0-0.8); NEUTROPHIL (%) 66.7 % (45-76); NEUTROPHIL COUNT 3.8 K/uL (1.8-6.4); PLAT.SUFFICIENCY DECREASED
[2016-10-06 08:41] LABS: POINT-OF-CARE METER ID UU14174216
[2016-10-06 10:48] LABS: TROP-I INTERPRETATION NEGATIVE
[2016-10-06 16:47] LABS: POINT-OF-CARE METER ID UU14174216
[2016-10-06 20:49] LABS: POINT-OF-CARE METER ID UU13113781
[2016-10-06 21:33] LABS: IRON 24 MCG/DL (35-150); SAMPLE HEMOLYSIS CHECK 0; SAMPLE ICTERIC CHECK 0; SAMPLE LIPEMIA CHECK 0
[2016-10-07 06:41] LABS: HEMATOCRIT 29.8 % (38.0-50.0); MCH 28.1 PG (29.0-34.0); MCHC 30.9 G/DL (30.0-36.0); MCV 91.1 FL (86-99); MEAN PLAT.VOLUME 12.1 uM^3 (9.0-12.4); PLATELET COUNT 117 K/uL (156-360); RBC DIS.WIDTH-CV 24.7 % (11.8-14.6); RBC DIS.WIDTH-SD 81.6 % (39-53); RED BLOOD COUNT 3.27 M/uL (4.00-5.50); WHITE BLOOD COUNT 4.3 K/uL (4.1-10.2)
[2016-10-07 06:42] LABS: POINT-OF-CARE METER ID UU14149397
[2016-10-07 07:07] LABS: ANION GAP 10 MEQ/L (2-14); CHLORIDE 102 MEQ/L (99-109); GFR ESTIMATE (CALCULATED) 19 mL/min/; POTASSIUM 4.9 MEQ/L (3.7-5.4); SAMPLE HEMOLYSIS CHECK 0; SAMPLE ICTERIC CHECK 0; SAMPLE LIPEMIA CHECK 0; SODIUM 139 MEQ/L (136-147); UREA NITROGEN (BUN) 74 mg/dL (9-23)
[2016-10-07 07:09] LABS: ALKALINE PHOSPHATASE 125 IU/L (3-129); GLUCOSE 312 mg/dL (70-99); TOTAL BILIRUBIN 0.6 MG/DL (0.0-1.0)
[2016-10-07 07:10] LABS: TROP-I INTERPRETATION NEGATIVE; TROPONIN-I 0.18 ng/mL (0.0-0.30)
[2016-10-07 07:40] VITALS: BP 125/84
[2016-10-07 10:10] LABS: POINT-OF-CARE METER ID UU14100415
[2016-10-07 10:56] LABS: POINT-OF-CARE METER ID UU14100415
[2016-10-07 11:29] VITALS: BP 126/82
[2016-10-07 12:19] VITALS: BP 97/67
[2016-10-07 15:15] VITALS: BP 124/86
[2016-10-07 16:22] LABS: POINT-OF-CARE METER ID UU14188577
[2016-10-07 19:50] VITALS: BP 168/74
[2016-10-07 21:37] LABS: POINT-OF-CARE METER ID UU14188577
[2016-10-08] VITALS (7 sets, daily range): BP systolic 128–170; BP diastolic 72–90
[2016-10-08 06:19] LABS: POINT-OF-CARE METER ID UU14149397
[2016-10-08 06:54] LABS: HEMATOCRIT 29.4 % (38.0-50.0); MCH 28.7 PG (29.0-34.0); MCV 89.9 FL (86-99); MEAN PLAT.VOLUME 12.8 uM^3 (9.0-12.4); PLATELET COUNT 122 K/uL (156-360); RBC DIS.WIDTH-CV 25.1 % (11.8-14.6); RBC DIS.WIDTH-SD 81.6 % (39-53); RED BLOOD COUNT 3.27 M/uL (4.00-5.50); WHITE BLOOD COUNT 3.7 K/uL (4.1-10.2)
[2016-10-08 07:14] LABS: ANION GAP 13 MEQ/L (2-14); CHLORIDE 104 MEQ/L (99-109); GFR ESTIMATE (CALCULATED) 19 mL/min/; GLUCOSE 160 mg/dL (70-99); POTASSIUM 4.9 MEQ/L (3.7-5.4); SAMPLE HEMOLYSIS CHECK 0; SAMPLE ICTERIC CHECK 0; SAMPLE LIPEMIA CHECK 0; SODIUM 140 MEQ/L (136-147); UREA NITROGEN (BUN) 71 mg/dL (9-23)
[2016-10-08 11:36] LABS: POINT-OF-CARE METER ID UU14188577
[2016-10-08 16:15] LABS: POINT-OF-CARE METER ID UU14149397
[2016-10-09 04:29] VITALS: BP 144/70
[2016-10-09 06:20] LABS: POINT-OF-CARE METER ID UU14188577
[2016-10-09 07:45] VITALS: BP 140/80
[2016-10-09 09:10] LABS: ANION GAP 10 MEQ/L (2-14); CHLORIDE 104 MEQ/L (99-109); GFR ESTIMATE (CALCULATED) 20 mL/min/; GLUCOSE 198 mg/dL (70-99); POTASSIUM 4.8 MEQ/L (3.7-5.4); SAMPLE HEMOLYSIS CHECK 0; SAMPLE ICTERIC CHECK 0; SAMPLE LIPEMIA CHECK 0; SODIUM 145 MEQ/L (136-147); UREA NITROGEN (BUN) 65 mg/dL (9-23)
[2016-10-09 13:05] VITALS: BP 136/84
[2016-10-09 15:49] VITALS: BP 124/80
[2016-10-09 16:07] LABS: POINT-OF-CARE METER ID UU14149397
[2016-10-09 20:34] VITALS: BP 149/93
[2016-10-09 22:14] LABS: POINT-OF-CARE METER ID UU14188577
[2016-10-10 00:30] VITALS: BP 109/75
[2016-10-10 05:14] VITALS: BP 93/55
[2016-10-10 06:58] LABS: POINT-OF-CARE METER ID UU14188577
[2016-10-10 07:31] LABS: EOSINOPHIL (%) 1.2 % (0-5); EOSINOPHIL COUNT 0.1 K/uL (0-0.3); HEMATOCRIT 31.5 % (38.0-50.0); IMMATURE GRANULOCYTE (%) 1.9 % (0.0-0.7); IMMATURE GRANULOCYTE COUNT 0.2 K/uL; INSTRUMENT ABS NEUTROPHIL CT 5.2 K/uL; LYMPHOCYTE COUNT 1.1 K/uL (1.0-2.8); MCH 28.6 PG (29.0-34.0); MCHC 31.1 G/DL (30.0-36.0); MCV 91.8 FL (86-99); MEAN PLAT.VOLUME 11.4 uM^3 (9.0-12.4); MONOCYTE (%) 15.3 % (3-12); MONOCYTE COUNT 1.2 K/uL (0-0.8); NEUTROPHIL (%) 67.3 % (45-76); NEUTROPHIL COUNT 5.2 K/uL (1.8-6.4); NRBC (%) 1.4 /100 WBC (0-0); PLATELET COUNT 165 K/uL (156-360); RBC DIS.WIDTH-CV 25.4 % (11.8-14.6); RBC DIS.WIDTH-SD 81.9 % (39-53); RED BLOOD COUNT 3.43 M/uL (4.00-5.50); WHITE BLOOD COUNT 7.7 K/uL (4.1-10.2)
[2016-10-10 07:37] LABS: ALKALINE PHOSPHATASE 131 IU/L (3-129); ANION GAP 8 MEQ/L (2-14); CHLORIDE 106 MEQ/L (99-109); GFR ESTIMATE (CALCULATED) 20 mL/min/; GLUCOSE 219 mg/dL (70-99); POTASSIUM 5.1 MEQ/L (3.7-5.4); SAMPLE HEMOLYSIS CHECK 0; SAMPLE ICTERIC CHECK 0; SAMPLE LIPEMIA CHECK 0; SODIUM 144 MEQ/L (136-147); TOTAL BILIRUBIN 0.6 MG/DL (0.0-1.0); UREA NITROGEN (BUN) 64 mg/dL (9-23)
[2016-10-10 11:21] LABS: POINT-OF-CARE METER ID UU14188577
[2016-10-10 11:53] VITALS: BP 108/72
[2016-10-10] MEDS ORDERED: METRONIDAZOLE500 MG PO (12:32)
[2016-10-10] MEDS ORDERED: LOPRESSOR50 MG PO (12:34)
[2016-10-10] MEDS ORDERED: CHOLESTYRAMINE P4 GM PO (12:34)
[2016-10-10] MEDS ORDERED: SPIRONOLACTONE50 MG PO (12:35)
[2016-10-10] MEDS ORDERED: DILTIAZEM 24HR180 MG PO (12:35)
[2016-10-10] MEDS ORDERED: BUMETANIDE0.5 MG PO (12:36)
[2016-10-10 16:23] VITALS: BP 118/84
[2016-10-10 16:29] LABS: POINT-OF-CARE METER ID UU14188577
[2016-10-10 19:09] LABS: ANION GAP 9 MEQ/L (2-14); CHLORIDE 101 MEQ/L (99-109); POTASSIUM 4.6 MEQ/L (3.7-5.4); SAMPLE HEMOLYSIS CHECK 0; SAMPLE ICTERIC CHECK 0; SAMPLE LIPEMIA CHECK 0; SODIUM 137 MEQ/L (136-147)
[2016-10-10 19:10] LABS: EOSINOPHIL (%) 0.2 % (0-5); HEMATOCRIT 31.1 % (38.0-50.0); IMMATURE GRANULOCYTE (%) 2.1 % (0.0-0.7); IMMATURE GRANULOCYTE COUNT 0.3 K/uL; INSTRUMENT ABS NEUTROPHIL CT 9.9 K/uL; LYMPHOCYTE COUNT 0.9 K/uL (1.0-2.8); MCH 28.8 PG (29.0-34.0); MCHC 31.5 G/DL (30.0-36.0); MCV 91.5 FL (86-99); MONOCYTE (%) 10.3 % (3-12); MONOCYTE COUNT 1.3 K/uL (0-0.8); NEUTROPHIL (%) 80.2 % (45-76); NEUTROPHIL COUNT 9.9 K/uL (1.8-6.4); NRBC (%) 0.6 /100 WBC (0-0); PLATELET COUNT 198 K/uL (156-360); RBC DIS.WIDTH-CV 25.7 % (11.8-14.6); RBC DIS.WIDTH-SD 80.3 % (39-53)
[2016-10-10 19:12] LABS: WHITE BLOOD COUNT 12.4 K/uL (4.1-10.2)
[2016-10-10 19:14] LABS: GFR ESTIMATE (CALCULATED) 21 mL/min/; GLUCOSE 291 mg/dL (70-99); UREA NITROGEN (BUN) 62 mg/dL (9-23)
[2016-10-10 19:16] LABS: TROP-I INTERPRETATION NEGATIVE
[2016-10-10 19:25] LABS: TROPONIN-I 0.09 ng/mL (0.0-0.30)
[2016-10-10 20:04] VITALS: BP 134/93
[2016-10-10 21:32] LABS: ADD MIUA? YES; BILIRUBIN NEGATIVE; BLOOD MODERATE; COLOR YELLOW ((YELLOW)); GLUCOSE (STRIP) 50; KETONES NEGATIVE; LEUKOCYTES SMALL; NITRITE POSITIVE; PROTEIN (STRIP) 30; SPECIFIC GRAVITY 1.009 (1.000-1.030); UROBILINOGEN 0.2 MG/DL (0.2-1.0)
[2016-10-10 22:34] LABS: BACTERIA 3+ /HPF; EPITHELIAL CELLS RARE /HPF; MUCUS NONE SEEN /LPF
[2016-10-10 22:47] LABS: POINT-OF-CARE METER ID UU14149397
[2016-10-11 00:20] VITALS: BP 106/70
[2016-10-11 03:33] VITALS: BP 120/70
[2016-10-11 08:07] VITALS: BP 118/68
[2016-10-11 12:10] VITALS: BP 90/52
[2016-10-11 13:40] LABS: HEMATOCRIT 32.9 % (38.0-50.0); MCH 28.7 PG (29.0-34.0); MCHC 30.7 G/DL (30.0-36.0); MCV 93.5 FL (86-99); MEAN PLAT.VOLUME 11.9 uM^3 (9.0-12.4); NRBC (%) 0.3 /100 WBC (0-0); PLATELET COUNT 173 K/uL (156-360); RBC DIS.WIDTH-CV 26.6 % (11.8-14.6); RBC DIS.WIDTH-SD 88.8 % (39-53); RED BLOOD COUNT 3.52 M/uL (4.00-5.50)
[2016-10-11 14:23] LABS: ANION GAP 10 MEQ/L (2-14); CHLORIDE 105 MEQ/L (99-109); POTASSIUM 5.5 MEQ/L (3.7-5.4); SAMPLE HEMOLYSIS CHECK 0; SAMPLE ICTERIC CHECK 0; SAMPLE LIPEMIA CHECK 0; SODIUM 142 MEQ/L (136-147)
[2016-10-11 14:28] LABS: GFR ESTIMATE (CALCULATED) 19 mL/min/; GLUCOSE 249 mg/dL (70-99); UREA NITROGEN (BUN) 60 mg/dL (9-23)
[2016-10-11 14:32] LABS: ALKALINE PHOSPHATASE 154 IU/L (3-129); ANION GAP 10 MEQ/L (2-14); CHLORIDE 105 MEQ/L (99-109); GFR ESTIMATE (CALCULATED) 19 mL/min/; GLUCOSE 246 mg/dL (70-99); POTASSIUM 5.4 MEQ/L (3.7-5.4); SAMPLE HEMOLYSIS CHECK 0; SAMPLE ICTERIC CHECK 0; SAMPLE LIPEMIA CHECK 0; SODIUM 142 MEQ/L (136-147); UREA NITROGEN (BUN) 60 mg/dL (9-23)
[2016-10-11 16:16] VITALS: BP 92/50
[2016-10-11 16:38] LABS: POINT-OF-CARE METER ID UU14188577
[2016-10-11 20:25] VITALS: BP 133/84
[2016-10-11 22:00] LABS: POINT-OF-CARE METER ID UU14188577
[2016-10-12 03:49] VITALS: BP 90/70
[2016-10-12 07:11] LABS: POINT-OF-CARE METER ID UU14188577
[2016-10-12 08:05] LABS: ANION GAP 10 MEQ/L (2-14); CHLORIDE 105 MEQ/L (99-109); GFR ESTIMATE (CALCULATED) 18 mL/min/; GLUCOSE 246 mg/dL (70-99); POTASSIUM 5.1 MEQ/L (3.7-5.4); SAMPLE HEMOLYSIS CHECK 0; SAMPLE ICTERIC CHECK 0; SAMPLE LIPEMIA CHECK 0; SODIUM 144 MEQ/L (136-147); UREA NITROGEN (BUN) 64 mg/dL (9-23); URIC ACID 14.8 mg/dL (3.1-9.2)
[2016-10-12 08:29] VITALS: BP 98/66
[2016-10-12 12:05] VITALS: BP 102/68
[2016-10-12 21:11] VITALS: BP 110/65
[2016-10-12] MEDS ORDERED: ALLOPURINOL100 MG PO (22:01)
[2016-10-12 22:10] LABS: POINT-OF-CARE METER ID UU14188577
[2016-10-13 00:46] VITALS: BP 100/62
[2016-10-13 04:27] VITALS: BP 113/78
[2016-10-13 06:43] LABS: HEMATOCRIT 29.6 % (38.0-50.0); MCH 29.1 PG (29.0-34.0); MCHC 31.8 G/DL (30.0-36.0); MCV 91.6 FL (86-99); MEAN PLAT.VOLUME 12.3 uM^3 (9.0-12.4); PLATELET COUNT 188 K/uL (156-360); RBC DIS.WIDTH-SD 89.5 % (39-53); RED BLOOD COUNT 3.23 M/uL (4.00-5.50); WHITE BLOOD COUNT 15.9 K/uL (4.1-10.2)
[2016-10-13 06:52] LABS: POINT-OF-CARE METER ID UU14188577
[2016-10-13 07:15] LABS: ALKALINE PHOSPHATASE 169 IU/L (3-129); ANION GAP 10 MEQ/L (2-14); ANION GAP 9 MEQ/L (2-14); CHLORIDE 104 MEQ/L (99-109); CHLORIDE 105 MEQ/L (99-109); GFR ESTIMATE (CALCULATED) 17 mL/min/; GLUCOSE 233 mg/dL (70-99); GLUCOSE 234 mg/dL (70-99); POTASSIUM 5.1 MEQ/L (3.7-5.4); SAMPLE HEMOLYSIS CHECK 0; SAMPLE ICTERIC CHECK 0; SAMPLE LIPEMIA CHECK 0; SODIUM 144 MEQ/L (136-147); SODIUM 145 MEQ/L (136-147); UREA NITROGEN (BUN) 63 mg/dL (9-23); UREA NITROGEN (BUN) 64 mg/dL (9-23)
[2016-10-13 07:18] LABS: TOTAL BILIRUBIN 0.7 MG/DL (0.0-1.0)
[2016-10-13 07:33] LABS: ABS NEUTROPHIL COUNT 13.8; ANISOCYTOSIS 3+; ATYPICAL LYMPHOCYTE 0.9 %; BAND NEUTROPHILS 3.5 % (0-8.0); BURR CELLS 2+; EOSINOPHIL ABS CT 0; LYMPHOCYTES 4.4 % (15.0-45.0); MACROCYTES 3+; MYELOCYTES 0.9 %; OVALOCYTES 1+; PLAT.SUFFICIENCY ADEQUATE; POIKILOCYTOSIS 2+; POLYCHROMASIA 1+; SEG.NEUTROPHILS 83.3 % (46.0-76.0); SPHEROCYTES 1+; TARGET CELLS 1+
[2016-10-13 08:25] VITALS: BP 108/64
[2016-10-13] MEDS ORDERED: ALLOPURINOL100 MG PO (11:04)
[2016-10-13 11:36] LABS: POINT-OF-CARE METER ID UU14188577
[2016-10-13 12:18] VITALS: BP 102/66
[2016-10-13 16:38] VITALS: BP 102/68
== END 2016-10-13 18:36 | DRG 308 ==
LOC: EME → EDBD 23:29 → EME 23:29 → 3EAST 10-04 08:40 → EDOF 10-04 08:40 → 4EAST 10-04 08:40 → 3EAST 10-06 21:46
PROVIDERS: Emergency Medicine; Internal Medicine; Internal Medicine Cardiovascular Disease; Internal Medicine Nephrology; Nurse Practitioner Adult Health; Pediatrics; Physician Assistant
DX: I48.0 Paroxysmal atrial fibrillation (principal); I50.33 Acute on chronic diastolic (congestive) heart failure; Z99.81 Dependence on supplemental oxygen; E11.649 Type 2 diabetes mellitus with hypoglycemia without coma; A04.7 Enterocolitis due to Clostridium difficile; E11.22 Type 2 diabetes mellitus with diabetic chronic kidney disease; N17.9 Acute kidney failure, unspecified; R18.8 Other ascites; N39.0 Urinary tract infection, site not specified; N25.81 Secondary hyperparathyroidism of renal origin; I42.9 Cardiomyopathy, unspecified; I24.8 Other forms of acute ischemic heart disease; J44.1 Chronic obstructive pulmonary disease with (acute) exacerbation; I25.10 Atherosclerotic heart disease of native coronary artery without angina pectoris; K57.30 Diverticulosis of large intestine without perforation or abscess without bleeding; R11.2 Nausea with vomiting, unspecified; N18.3 Chronic kidney disease, stage 3 (moderate); B35.6 Tinea cruris; R94.31 Abnormal electrocardiogram [ECG] [EKG]; R53.1 Weakness; D50.9 Iron deficiency anemia, unspecified; R19.7 Diarrhea, unspecified; F17.210 Nicotine dependence, cigarettes, uncomplicated; N47.2 Paraphimosis; N50.89 Other specified disorders of the male genital organs; D72.829 Elevated white blood cell count, unspecified; I12.9 Hypertensive chronic kidney disease with stage 1 through stage 4 chronic kidney disease, or unspecified chronic kidney disease; R33.9 Retention of urine, unspecified; G47.33 Obstructive sleep apnea (adult) (pediatric); E66.9 Obesity, unspecified; Z68.33 Body mass index [BMI] 33.0-33.9, adult; Z86.73 Personal history of transient ischemic attack (TIA), and cerebral infarction without residual deficits; Z79.82 Long term (current) use of aspirin
CPT/HCPCS: 71010; 71020; 74176; 80048; 80048 91; 80053; 80069; 81003; 82728; 82803; 82948; 83540; 83605; 83690; 83880; 84100; 84300; 84466; 84484; 84550; 85007; 85025; 85025 91; 85027; 85610; 85730; 86900; 86901; 87040; 87493; 93005; 94640; 94640 76; 94799; 99202; 99281; 99285; J0696; J0881; J1160; J1756; J1815; J1940; J7030; J7050; S0028

== ENCOUNTER 2016-11-10 09:49 | Inpatient (IN) | payer OTHER ==
[~2016-11-10] VITALS: Ht 157.5 cm; Wt 84.6 kg
[~2016-11-10 09:49] MED LIST changes: +ALLOPURINOL100 MG PO; +CHOLESTYRAMINE P4 GM PO; +DILTIAZEM 24HR180 MG PO; +DULCOLAX10 MG PR; +FLOMAX0.4 MG PO; +KLOR-CON M2020 MEQ PO; +LASIX80 MG PO; +LOTRIMIN AF24 GM TP; +METRONIDAZOLE500 MG PO; +MILK OF MAGNESI10 ML PO; +NYSTOP60 GM TP; +ROCEPHIN1000 MG IV; +SPIRONOLACTONE50 MG PO
[2016-11-10 10:39] LABS: BASE EXCESS 1.1 mEq/L (-3 to +3); BICARBONATE 25.1 mEq/L (22-26); CARBOXY HGB 3.6 % (0-5); METHEMOGLOBIN 1.5 % (0-1.5); PCO2 37 mm Hg (35-45); PO2 73 mm Hg (80-100); pH 7.44 (7.35-7.45)
[2016-11-10 10:41] LABS: COMMENTS - BLOOD GASES A+C+; DEVICE NC; O2 FLOW 2.5 L/MIN; SITE RB
[2016-11-10 10:49] LABS: POINT-OF-CARE METER ID UU13113702
[2016-11-10 10:58] LABS: EOSINOPHIL (%) 0.1 % (0-5); HEMATOCRIT 37.4 % (38.0-50.0); IMMATURE GRANULOCYTE COUNT 0.2 K/uL; INSTRUMENT ABS NEUTROPHIL CT 17.2 K/uL; MCH 29.4 PG (29.0-34.0); MCHC 32.1 G/DL (30.0-36.0); MCV 91.7 FL (86-99); MONOCYTE (%) 11.9 % (3-12); MONOCYTE COUNT 2.5 K/uL (0-0.8); NEUTROPHIL (%) 81.8 % (45-76); NEUTROPHIL COUNT 17.2 K/uL (1.8-6.4); PLATELET COUNT 203 K/uL (156-360); RBC DIS.WIDTH-CV 24.9 % (11.8-14.6); RBC DIS.WIDTH-SD 82.6 % (39-53); RED BLOOD COUNT 4.08 M/uL (4.00-5.50)
[2016-11-10 11:02] LABS: CHLORIDE 106 mEq/L (99-109); POTASSIUM 4.8 mEq/L (3.7-5.4); SODIUM 140 mEq/L (136-147)
[2016-11-10 11:04] LABS: GLUCOSE 123 mg/dL (70-99)
[2016-11-10 11:06] LABS: ANION GAP 10 MEQ/L (2-14)
[2016-11-10 11:08] LABS: ALKALINE PHOSPHATASE 266 IU/L (3-129); GFR ESTIMATE (CALCULATED) 29 mL/min/
[2016-11-10 11:09] LABS: UREA NITROGEN (BUN) 52 mg/dL (9-23)
[2016-11-10 11:13] LABS: TROP-I INTERPRETATION NEGATIVE; TROPONIN-I 0.12 ng/mL (0.0-0.30)
[2016-11-10 11:20] LABS: ADD MIUA? YES; BILIRUBIN NEGATIVE; BLOOD SMALL; COLOR AMBER ((YELLOW)); GLUCOSE (STRIP) NEGATIVE; KETONES NEGATIVE; LEUKOCYTES MODERATE; NITRITE NEGATIVE; PROTEIN (STRIP) 100; SPECIFIC GRAVITY 1.013 (1.000-1.030); UROBILINOGEN 0.2 MG/DL (0.2-1.0)
[2016-11-10 11:34] LABS: BACTERIA 3+ /HPF; BUDDING YEAST 4+; CALCIUM OXALATE CRYSTALS 2+ /HPF; EPITHELIAL CELLS RARE /HPF; MUCUS TRACE /LPF; RED BLOOD CELLS 0-5 /HPF (0-5); UCUL ADDED? YES; WHITE BLOOD CELLS TNTC /HPF (0-5); WHITE BLOOD CELLS CLUMP FEW /HPF (0-5)
[2016-11-10] MEDS ORDERED: DILTIAZEM 24HR360 M1 PO (12:57)
[2016-11-10] MEDS ORDERED: NABI650T PO (12:58)
[2016-11-10] MEDS ORDERED: ALLOPURINOL100 MG PO (12:58)
[2016-11-10] MEDS ORDERED: FAMOTIDINE20 MG PO (12:59)
[2016-11-10] MEDS ORDERED: SPIRONOLACTONE50 MG PO (13:03)
[2016-11-10] MEDS ORDERED: FLOMAX0.4 MG PO (13:05)
[2016-11-10] MEDS ORDERED: HUMALOG100 UNIT/2 SC ×4 (13:32→13:33)
[2016-11-10] MEDS ORDERED: LANTUS 3 M100 UNITS1 SC ×2 (13:33→13:34)
[2016-11-10 17:25] VITALS: BP 141/69
[2016-11-10 21:18] LABS: TROP-I INTERPRETATION NEGATIVE
[2016-11-10 21:45] VITALS: BP 115/67
[2016-11-11] VITALS (7 sets, daily range): BP systolic 93–135; BP diastolic 63–79
[2016-11-11 05:26] LABS: HEMATOCRIT 32.3 % (38.0-50.0); MCH 29.4 PG (29.0-34.0); MCHC 31.6 G/DL (30.0-36.0); MCV 93.1 FL (86-99); MEAN PLAT.VOLUME 10.5 uM^3 (9.0-12.4); PLATELET COUNT 182 K/uL (156-360); RBC DIS.WIDTH-CV 24.5 % (11.8-14.6); RBC DIS.WIDTH-SD 83.4 % (39-53); RED BLOOD COUNT 3.47 M/uL (4.00-5.50); WHITE BLOOD COUNT 19.7 K/uL (4.1-10.2)
[2016-11-11 05:48] LABS: TROP-I INTERPRETATION NEGATIVE; TROPONIN-I 0.12 ng/mL (0.0-0.30)
[2016-11-11 05:53] LABS: ALKALINE PHOSPHATASE 230 IU/L (3-129); ANION GAP 9 MEQ/L (2-14); CHLORIDE 106 MEQ/L (99-109); GFR ESTIMATE (CALCULATED) 36 mL/min/; POTASSIUM 4.9 MEQ/L (3.7-5.4); SAMPLE HEMOLYSIS CHECK 0; SAMPLE ICTERIC CHECK 0; SAMPLE LIPEMIA CHECK 0; SODIUM 138 MEQ/L (136-147); TOTAL BILIRUBIN 1.5 MG/DL (0.0-1.0); UREA NITROGEN (BUN) 47 mg/dL (9-23)
[2016-11-11 05:56] LABS: GLUCOSE 201 mg/dL (70-99)
[2016-11-11 08:00] LABS: POINT-OF-CARE METER ID UU13113781; POINT-OF-CARE USER ID ENVKC36
[2016-11-11 11:16] LABS: POINT-OF-CARE METER ID UU13113698; POINT-OF-CARE USER ID ENVKC36
[2016-11-11 16:38] LABS: POINT-OF-CARE METER ID UU13113698; POINT-OF-CARE USER ID ENVKC36
[2016-11-11 21:29] LABS: POINT-OF-CARE METER ID UU14174216
[2016-11-12 04:59] VITALS: BP 113/55
[2016-11-12 05:27] LABS: EOSINOPHIL COUNT 0.1 K/uL (0-0.3); HEMATOCRIT 30.9 % (38.0-50.0); IMMATURE GRANULOCYTE (%) 0.9 % (0.0-0.7); IMMATURE GRANULOCYTE COUNT 0.1 K/uL; INSTRUMENT ABS NEUTROPHIL CT 10.7 K/uL; LYMPHOCYTE COUNT 1.1 K/uL (1.0-2.8); MCH 29.8 PG (29.0-34.0); MCHC 32.4 G/DL (30.0-36.0); MEAN PLAT.VOLUME 11.8 uM^3 (9.0-12.4); MONOCYTE (%) 11.2 % (3-12); MONOCYTE COUNT 1.5 K/uL (0-0.8); NEUTROPHIL COUNT 10.7 K/uL (1.8-6.4); PLATELET COUNT 193 K/uL (156-360); RBC DIS.WIDTH-CV 24.1 % (11.8-14.6); RBC DIS.WIDTH-SD 80.3 % (39-53); RED BLOOD COUNT 3.36 M/uL (4.00-5.50); WHITE BLOOD COUNT 13.5 K/uL (4.1-10.2)
[2016-11-12 06:12] LABS: ALKALINE PHOSPHATASE 282 IU/L (3-129); ANION GAP 10 MEQ/L (2-14); CHLORIDE 106 MEQ/L (99-109); GFR ESTIMATE (CALCULATED) 34 mL/min/; POTASSIUM 5.7 MEQ/L (3.7-5.4); SAMPLE HEMOLYSIS CHECK 1; SAMPLE ICTERIC CHECK 0; SAMPLE LIPEMIA CHECK 0; SODIUM 137 MEQ/L (136-147); UREA NITROGEN (BUN) 50 mg/dL (9-23)
[2016-11-12 06:36] LABS: GLUCOSE 71 mg/dL (70-99); TOTAL BILIRUBIN 0.7 MG/DL (0.0-1.0)
[2016-11-12 07:52] VITALS: BP 124/69
[2016-11-12 10:22] LABS: POINT-OF-CARE METER ID UU13113781
[2016-11-12 10:22] LABS: POINT-OF-CARE METER ID UU13113781; POINT-OF-CARE USER ID ENVKC36
[2016-11-12 11:32] LABS: POINT-OF-CARE METER ID UU13113781; POINT-OF-CARE USER ID ENVKC36
[2016-11-12 11:40] VITALS: BP 113/68
[2016-11-12 16:24] LABS: POINT-OF-CARE METER ID UU13113781; POINT-OF-CARE USER ID ENVKC36
[2016-11-12 18:29] LABS: ANION GAP 8 MEQ/L (2-14); CHLORIDE 105 MEQ/L (99-109); GFR ESTIMATE (CALCULATED) 32 mL/min/; POTASSIUM 4.9 MEQ/L (3.7-5.4); SAMPLE HEMOLYSIS CHECK 0; SAMPLE ICTERIC CHECK 0; SAMPLE LIPEMIA CHECK 0; SODIUM 137 MEQ/L (136-147); UREA NITROGEN (BUN) 51 mg/dL (9-23)
[2016-11-12 18:34] LABS: GLUCOSE 186 mg/dL (70-99)
[2016-11-12 20:33] VITALS: BP 155/83
[2016-11-12 21:19] LABS: POINT-OF-CARE METER ID UU13113698
[2016-11-13 04:09] VITALS: BP 128/72
[2016-11-13 05:00] LABS: POINT-OF-CARE METER ID UU13113698
[2016-11-13 05:36] LABS: ANION GAP 11 MEQ/L (2-14); CHLORIDE 107 MEQ/L (99-109); GFR ESTIMATE (CALCULATED) 32 mL/min/; POTASSIUM 4.9 MEQ/L (3.7-5.4); SAMPLE HEMOLYSIS CHECK 0; SAMPLE ICTERIC CHECK 0; SAMPLE LIPEMIA CHECK 0; SODIUM 139 MEQ/L (136-147); UREA NITROGEN (BUN) 52 mg/dL (9-23)
[2016-11-13 05:45] LABS: GLUCOSE 87 mg/dL (70-99)
[2016-11-13 07:48] VITALS: BP 119/64
[2016-11-13 08:14] LABS: POINT-OF-CARE METER ID UU13113698
[2016-11-13 09:31] LABS: POINT-OF-CARE METER ID UU13113698
[2016-11-13 12:25] VITALS: BP 101/68
[2016-11-13 17:03] LABS: POINT-OF-CARE METER ID UU14174216
[2016-11-13 17:47] VITALS: BP 110/59
[2016-11-13 20:41] VITALS: BP 145/66
[2016-11-13 22:08] LABS: POINT-OF-CARE METER ID UU13113698
[2016-11-14 00:13] LABS: POINT-OF-CARE METER ID UU13113781
[2016-11-14 00:36] VITALS: BP 141/88
[2016-11-14 01:04] LABS: POINT-OF-CARE METER ID UU13113781
[2016-11-14 04:51] VITALS: BP 108/75
[2016-11-14 08:01] LABS: EOSINOPHIL (%) 2.4 % (0-5); EOSINOPHIL COUNT 0.2 K/uL (0-0.3); IMMATURE GRANULOCYTE (%) 1.5 % (0.0-0.7); IMMATURE GRANULOCYTE COUNT 0.1 K/uL; INSTRUMENT ABS NEUTROPHIL CT 4.3 K/uL; LYMPHOCYTE COUNT 1.1 K/uL (1.0-2.8); MCH 28.5 PG (29.0-34.0); MCHC 31.2 G/DL (30.0-36.0); MCV 91.2 FL (86-99); MEAN PLAT.VOLUME 10.8 uM^3 (9.0-12.4); MONOCYTE (%) 15.4 % (3-12); NEUTROPHIL (%) 63.5 % (45-76); NEUTROPHIL COUNT 4.3 K/uL (1.8-6.4); PLATELET COUNT 228 K/uL (156-360); RBC DIS.WIDTH-CV 23.3 % (11.8-14.6); RBC DIS.WIDTH-SD 77.3 % (39-53); RED BLOOD COUNT 3.62 M/uL (4.00-5.50); WHITE BLOOD COUNT 6.7 K/uL (4.1-10.2)
[2016-11-14 08:29] LABS: POINT-OF-CARE METER ID UU13113698
[2016-11-14 08:44] LABS: ALKALINE PHOSPHATASE 319 IU/L (3-129); ANION GAP 10 MEQ/L (2-14); CHLORIDE 104 MEQ/L (99-109); GFR ESTIMATE (CALCULATED) 37 mL/min/; GLUCOSE 97 mg/dL (70-99); POTASSIUM 5.1 MEQ/L (3.7-5.4); SAMPLE HEMOLYSIS CHECK 0; SAMPLE ICTERIC CHECK 0; SAMPLE LIPEMIA CHECK 0; SODIUM 138 MEQ/L (136-147); UREA NITROGEN (BUN) 51 mg/dL (9-23)
[2016-11-14 08:45] VITALS: BP 131/85
[2016-11-14 08:52] LABS: TOTAL BILIRUBIN 0.5 MG/DL (0.0-1.0)
[2016-11-14 11:19] LABS: POINT-OF-CARE METER ID UU13113698
[2016-11-14 12:36] VITALS: BP 110/69
[2016-11-14 16:02] LABS: POINT-OF-CARE METER ID UU13113698
[2016-11-14 17:55] VITALS: BP 156/86
[2016-11-14 20:30] VITALS: BP 154/89
[2016-11-15 01:12] VITALS: BP 113/70
[2016-11-15 05:58] VITALS: BP 114/74
[2016-11-15 07:40] VITALS: BP 133/74
[2016-11-15 07:49] LABS: POINT-OF-CARE METER ID UU13113698
[2016-11-15 07:57] LABS: ANION GAP 7 MEQ/L (2-14); CHLORIDE 102 MEQ/L (99-109); GFR ESTIMATE (CALCULATED) 42 mL/min/; GLUCOSE 134 mg/dL (70-99); POTASSIUM 4.8 MEQ/L (3.7-5.4); SAMPLE HEMOLYSIS CHECK 0; SAMPLE ICTERIC CHECK 0; SAMPLE LIPEMIA CHECK 0; SODIUM 135 MEQ/L (136-147); UREA NITROGEN (BUN) 49 mg/dL (9-23)
[2016-11-15 11:20] VITALS: BP 109/77
[2016-11-15] MEDS ORDERED: BUMETANIDE1 MG PO (15:54)
[2016-11-15] MEDS ORDERED: MACRODANTIN100 MG PO (16:02)
[2016-11-15] MEDS ORDERED: DIGOXIN250 MCG PO (16:03)
== END 2016-11-15 16:36 | disposition home health service (06) | DRG 309 ==
LOC: EME 09:49 → EDOF 13:37 → 4EAST 13:37 → EDOF 13:42 → 4EAST 17:03
PROVIDERS: Emergency Medicine; Internal Medicine; Nurse Practitioner Adult Health; Pediatrics; Physician Assistant Medical
DX: I48.0 Paroxysmal atrial fibrillation (principal); N17.9 Acute kidney failure, unspecified; E87.2 Acidosis; N18.4 Chronic kidney disease, stage 4 (severe); I50.9 Heart failure, unspecified; I13.0 Hypertensive heart and chronic kidney disease with heart failure and stage 1 through stage 4 chronic kidney disease, or unspecified chronic kidney disease; I27.2 Other secondary pulmonary hypertension; J44.1 Chronic obstructive pulmonary disease with (acute) exacerbation; D50.9 Iron deficiency anemia, unspecified; N39.0 Urinary tract infection, site not specified; D63.1 Anemia in chronic kidney disease; E11.22 Type 2 diabetes mellitus with diabetic chronic kidney disease; E66.9 Obesity, unspecified; E78.5 Hyperlipidemia, unspecified; E87.5 Hyperkalemia; F17.200 Nicotine dependence, unspecified, uncomplicated; F43.21 Adjustment disorder with depressed mood; G47.33 Obstructive sleep apnea (adult) (pediatric); N25.81 Secondary hyperparathyroidism of renal origin; N32.89 Other specified disorders of bladder; N50.811 Right testicular pain; R09.02 Hypoxemia; R32 Unspecified urinary incontinence; Z68.33 Body mass index [BMI] 33.0-33.9, adult; Z79.4 Long term (current) use of insulin; Z79.82 Long term (current) use of aspirin; Z79.899 Other long term (current) drug therapy; Z83.3 Family history of diabetes mellitus; Z86.73 Personal history of transient ischemic attack (TIA), and cerebral infarction without residual deficits; R10.12 Left upper quadrant pain; R10.32 Left lower quadrant pain; R19.7 Diarrhea, unspecified; L29.0 Pruritus ani
CPT/HCPCS: 36600; 70450; 71010; 74176; 76870; 80048; 80048 91; 80053; 80069; 81003; 82803; 82948; 83605; 83880; 84100; 84443; 84484; 85025; 85027; 87040; 87077; 87086; 87186; 87493; 87801; 93005; 94640; 94640 76; 94799; 99281; 99285; C1753; J0696; J1335; J1815; J7030; J7040; J7050

== ENCOUNTER 2017-01-14 04:35 | Inpatient (IN) | payer OTHER ==
[~2017-01-14] VITALS: Ht 157.5 cm; Wt 76.0 kg
[~2017-01-14 04:35] MED LIST changes: +DIGOXIN250 MCG PO; +MACRODANTIN100 MG PO
[2017-01-14 05:50] LABS: INTER. NORMALIZED RATIO 1.2; PROTHROMBIN TIME 13.4 SEC (10.2-12.9)
[2017-01-14 05:53] LABS: PTT 32.1 SEC (25-37)
[2017-01-14 05:58] LABS: CHLORIDE 106 mEq/L (99-109); POTASSIUM 4.4 mEq/L (3.7-5.4); SODIUM 136 mEq/L (136-147)
[2017-01-14 06:00] LABS: GLUCOSE 217 mg/dL (70-99)
[2017-01-14 06:02] LABS: ANION GAP 9 MEQ/L (2-14); TOTAL BILIRUBIN 1.3 mg/dL (0.0-1.0)
[2017-01-14 06:04] LABS: ALKALINE PHOSPHATASE 223 IU/L (3-129); GFR ESTIMATE (CALCULATED) 36 mL/min/
[2017-01-14 06:05] LABS: UREA NITROGEN (BUN) 45 mg/dL (9-23)
[2017-01-14 06:07] LABS: LIPASE 16 U/L (1.0-51.0); TROP-I INTERPRETATION NEGATIVE; TROPONIN-I 0.14 ng/mL (0.0-0.30)
[2017-01-14 06:13] LABS: DIGOXIN < 0.3 ng/mL (0.8-2.0)
[2017-01-14 06:40] LABS: HEMATOCRIT 34.3 % (38.0-50.0); MCH 28.5 PG (29.0-34.0); MCHC 31.8 G/DL (30.0-36.0); MCV 89.6 FL (86-99); PLATELET COUNT 180 K/uL (156-360); RBC DIS.WIDTH-CV 19.1 % (11.8-14.6); RBC DIS.WIDTH-SD 63.1 % (39-53); RED BLOOD COUNT 3.83 M/uL (4.00-5.50); WHITE BLOOD COUNT 7.3 K/uL (4.1-10.2)
[2017-01-14] MEDS ORDERED: METOPROLOL SUCC50 MG PO (08:57)
[2017-01-14] MEDS ORDERED: HUMALOG100 UNIT/2 SC (08:57)
[2017-01-14 08:58] LABS: ADD MIUA? YES; BILIRUBIN NEGATIVE; BLOOD MODERATE; COLOR AMBER ((YELLOW)); GLUCOSE (STRIP) NEGATIVE; KETONES NEGATIVE; LEUKOCYTES LARGE; NITRITE NEGATIVE; PROTEIN (STRIP) 100; SPECIFIC GRAVITY 1.014 (1.000-1.030)
[2017-01-14] MEDS ORDERED: LANTUS 3 M100 UNITS1 SC (08:58)
[2017-01-14 09:21] LABS: UCUL ADDED? YES; WHITE BLOOD CELLS TNTC /HPF (0-5)
[2017-01-14 11:21] LABS: POINT-OF-CARE METER ID UU13113747
[2017-01-14 13:17] VITALS: BP 143/91
[2017-01-14 13:48] VITALS: BP 131/76
[2017-01-14 16:15] VITALS: BP 140/93
[2017-01-14 17:13] LABS: POINT-OF-CARE METER ID UU14174216
[2017-01-14 17:15] VITALS: BP 133/92
[2017-01-14 20:05] LABS: TROP-I INTERPRETATION NEGATIVE; TROPONIN-I 0.12 ng/mL (0.0-0.30)
[2017-01-14 20:06] VITALS: BP 123/69
[2017-01-14 22:16] VITALS: BP 115/56
[2017-01-15 03:08] VITALS: BP 126/77
[2017-01-15 05:29] LABS: CHLORIDE 106 mEq/L (99-109); POTASSIUM 4.3 mEq/L (3.7-5.4); SODIUM 140 mEq/L (136-147)
[2017-01-15 05:31] LABS: GLUCOSE 168 mg/dL (70-99); TROP-I INTERPRETATION NEGATIVE; TROPONIN-I 0.08 ng/mL (0.0-0.30)
[2017-01-15 05:32] LABS: ANION GAP 10 MEQ/L (2-14)
[2017-01-15 05:34] LABS: ALKALINE PHOSPHATASE 200 IU/L (3-129); TOTAL BILIRUBIN 0.9 mg/dL (0.0-1.0)
[2017-01-15 05:35] LABS: GFR ESTIMATE (CALCULATED) 37 mL/min/
[2017-01-15 05:36] LABS: UREA NITROGEN (BUN) 41 mg/dL (9-23)
[2017-01-15 05:52] LABS: HEMATOCRIT 35.4 % (38.0-50.0); MCH 28.6 PG (29.0-34.0); MCHC 31.6 G/DL (30.0-36.0); MCV 90.3 FL (86-99); MEAN PLAT.VOLUME 12.6 uM^3 (9.0-12.4); PLATELET COUNT 175 K/uL (156-360); RBC DIS.WIDTH-CV 19.2 % (11.8-14.6); RBC DIS.WIDTH-SD 63.7 % (39-53); RED BLOOD COUNT 3.92 M/uL (4.00-5.50); WHITE BLOOD COUNT 7.2 K/uL (4.1-10.2)
[2017-01-15 07:47] VITALS: BP 126/74
[2017-01-15 15:42] VITALS: BP 127/71
[2017-01-15 16:23] LABS: POINT-OF-CARE METER ID UU14174216
[2017-01-15 19:10] VITALS: BP 122/83
[2017-01-16] VITALS (8 sets, daily range): BP systolic 123–160; BP diastolic 56–82
[2017-01-16 07:14] LABS: POINT-OF-CARE METER ID UU14174216
[2017-01-16 10:19] LABS: POINT-OF-CARE METER ID UU13113675; POINT-OF-CARE USER ID 515036437
[2017-01-16 11:41] LABS: C DIFF TOXIN POSITIVE (NEGATIVE)
[2017-01-16 11:44] LABS: PROBE CHECK PASS
[2017-01-16 12:32] LABS: POINT-OF-CARE METER ID UU14174216
[2017-01-16 16:41] LABS: POINT-OF-CARE METER ID UU14174216
[2017-01-16 17:11] LABS: ALKALINE PHOSPHATASE 158 IU/L (3-129); ANION GAP 7 MEQ/L (2-14); CHLORIDE 105 MEQ/L (99-109); EOSINOPHIL (%) 0 % (0-5); GFR ESTIMATE (CALCULATED) 47 mL/min/; GLUCOSE 210 mg/dL (70-99); HEMATOCRIT 39.2 % (38.0-50.0); IMMATURE GRANULOCYTE (%) 0.6 % (0.0-0.7); IMMATURE GRANULOCYTE COUNT 0.1 K/uL; INSTRUMENT ABS NEUTROPHIL CT 7.1 K/uL; LYMPHOCYTE COUNT 0.9 K/uL (1.0-2.8); MCH 29.1 PG (29.0-34.0); MCHC 30.6 G/DL (30.0-36.0); MEAN PLAT.VOLUME 12.5 uM^3 (9.0-12.4); MONOCYTE (%) 2.1 % (3-12); MONOCYTE COUNT 0.2 K/uL (0-0.8); NEUTROPHIL (%) 86.4 % (45-76); NEUTROPHIL COUNT 7.1 K/uL (1.8-6.4); PLATELET COUNT 165 K/uL (156-360); POTASSIUM 5.1 MEQ/L (3.7-5.4); RBC DIS.WIDTH-CV 19.5 % (11.8-14.6); RBC DIS.WIDTH-SD 67.5 % (39-53); RED BLOOD COUNT 4.13 M/uL (4.00-5.50); SAMPLE HEMOLYSIS CHECK 0; SAMPLE ICTERIC CHECK 0; SAMPLE LIPEMIA CHECK 0; SODIUM 138 MEQ/L (136-147); TOTAL BILIRUBIN 0.6 MG/DL (0.0-1.0); UREA NITROGEN (BUN) 37 mg/dL (9-23); WHITE BLOOD COUNT 8.2 K/uL (4.1-10.2)
[2017-01-16 17:16] LABS: MCV 94.9 FL (86-99)
[2017-01-17 03:31] VITALS: BP 128/72
[2017-01-17 08:03] VITALS: BP 116/8
[2017-01-17 08:24] LABS: POINT-OF-CARE METER ID UU14174216
[2017-01-17 12:52] VITALS: BP 107/65
[2017-01-17 18:54] VITALS: BP 106/54
[2017-01-17 22:07] VITALS: BP 116/82
[2017-01-18 00:43] VITALS: BP 132/93
[2017-01-18 03:37] VITALS: BP 130/74
[2017-01-18 07:23] LABS: POINT-OF-CARE METER ID UU13113725
[2017-01-18 07:55] VITALS: BP 122/87
[2017-01-18 11:09] VITALS: BP 131/68
[2017-01-18 11:10] LABS: POINT-OF-CARE METER ID UU13113725
[2017-01-18 15:43] LABS: POINT-OF-CARE METER ID UU13113725
[2017-01-18 16:06] VITALS: BP 140/89
[2017-01-18 18:48] VITALS: BP 148/80
[2017-01-19 07:02] LABS: ANION GAP 6 MEQ/L (2-14); CHLORIDE 106 MEQ/L (99-109); GFR ESTIMATE (CALCULATED) 50 mL/min/; POTASSIUM 4.6 MEQ/L (3.7-5.4); SAMPLE HEMOLYSIS CHECK 0; SAMPLE ICTERIC CHECK 0; SAMPLE LIPEMIA CHECK 0; SODIUM 140 MEQ/L (136-147); TOTAL BILIRUBIN 0.7 MG/DL (0.0-1.0); UREA NITROGEN (BUN) 30 mg/dL (9-23)
[2017-01-19 07:03] LABS: ALKALINE PHOSPHATASE 117 IU/L (3-129); GLUCOSE 52 mg/dL (70-99)
[2017-01-19 08:06] VITALS: BP 138/66
[2017-01-19 15:55] LABS: POINT-OF-CARE METER ID UU13113725
[2017-01-19 19:05] VITALS: BP 134/50
[2017-01-19 21:52] LABS: POINT-OF-CARE METER ID UU13113725
[2017-01-19 23:25] VITALS: BP 131/84
[2017-01-20 03:09] VITALS: BP 123/60
[2017-01-20 06:10] LABS: POINT-OF-CARE METER ID UU13113725
[2017-01-20 08:03] VITALS: BP 122/62
[2017-01-20 08:52] LABS: EOSINOPHIL (%) 1.5 % (0-5); EOSINOPHIL COUNT 0.1 K/uL (0-0.3); IMMATURE GRANULOCYTE (%) 0.5 % (0.0-0.7); INSTRUMENT ABS NEUTROPHIL CT 5.6 K/uL; LYMPHOCYTE COUNT 1.3 K/uL (1.0-2.8); MCH 28.8 PG (29.0-34.0); MEAN PLAT.VOLUME 11.7 uM^3 (9.0-12.4); MONOCYTE (%) 10.1 % (3-12); MONOCYTE COUNT 0.8 K/uL (0-0.8); NEUTROPHIL (%) 70.9 % (45-76); NEUTROPHIL COUNT 5.6 K/uL (1.8-6.4); PLATELET COUNT 196 K/uL (156-360); RBC DIS.WIDTH-CV 18.9 % (11.8-14.6); RBC DIS.WIDTH-SD 67.6 % (39-53); RED BLOOD COUNT 3.75 M/uL (4.00-5.50); WHITE BLOOD COUNT 7.9 K/uL (4.1-10.2)
[2017-01-20 09:16] LABS: ANION GAP 6 MEQ/L (2-14); CHLORIDE 103 MEQ/L (99-109); GFR ESTIMATE (CALCULATED) 50 mL/min/; POTASSIUM 5.3 MEQ/L (3.7-5.4); SAMPLE HEMOLYSIS CHECK 0; SAMPLE ICTERIC CHECK 0; SAMPLE LIPEMIA CHECK 0; SODIUM 136 MEQ/L (136-147); UREA NITROGEN (BUN) 26 mg/dL (9-23)
[2017-01-20 09:19] LABS: GLUCOSE 190 mg/dL (70-99)
[2017-01-20 11:29] LABS: POINT-OF-CARE METER ID UU13113725
[2017-01-20 12:14] VITALS: BP 130/64
[2017-01-20 16:00] VITALS: BP 141/74
[2017-01-20 16:13] LABS: POINT-OF-CARE METER ID UU13113725
[2017-01-20 18:33] LABS: POINT-OF-CARE METER ID UU13113725
[2017-01-20 20:30] LABS: POINT-OF-CARE METER ID UU13113725
[2017-01-20 23:14] VITALS: BP 184/93
[2017-01-21 06:05] LABS: POINT-OF-CARE METER ID UU13113725
[2017-01-21 07:38] VITALS: BP 160/80
[2017-01-21 11:33] LABS: POINT-OF-CARE METER ID UU13113725
[2017-01-21 16:52] LABS: POINT-OF-CARE METER ID UU13113725
[2017-01-21 17:17] LABS: GLUCOSE 135 mg/dL (70-99)
[2017-01-21 21:09] LABS: POINT-OF-CARE METER ID UU13113725
[2017-01-21 23:36] VITALS: BP 132/98
[2017-01-22 06:38] LABS: POINT-OF-CARE METER ID UU13113725
[2017-01-22 07:28] LABS: POINT-OF-CARE METER ID UU13113725
[2017-01-22 07:55] VITALS: BP 116/81
[2017-01-22 07:58] LABS: POINT-OF-CARE METER ID UU13113725
[2017-01-22 08:12] VITALS: BP 130/90
[2017-01-22 11:01] LABS: POINT-OF-CARE METER ID UU13113725
[2017-01-22 12:35] VITALS: BP 128/86
[2017-01-22 16:54] VITALS: BP 132/85
[2017-01-23 00:20] VITALS: BP 140/77
[2017-01-23 05:21] VITALS: BP 140/77
[2017-01-23 06:22] LABS: EOSINOPHIL (%) 2.3 % (0-5); EOSINOPHIL COUNT 0.2 K/uL (0-0.3); HEMATOCRIT 30.2 % (38.0-50.0); IMMATURE GRANULOCYTE (%) 0.4 % (0.0-0.7); INSTRUMENT ABS NEUTROPHIL CT 4.8 K/uL; LYMPHOCYTE COUNT 1.2 K/uL (1.0-2.8); MCH 28.8 PG (29.0-34.0); MCHC 30.5 G/DL (30.0-36.0); MCV 94.4 FL (86-99); MEAN PLAT.VOLUME 10.7 uM^3 (9.0-12.4); MONOCYTE (%) 16.1 % (3-12); MONOCYTE COUNT 1.2 K/uL (0-0.8); NEUTROPHIL (%) 64.7 % (45-76); NEUTROPHIL COUNT 4.8 K/uL (1.8-6.4); PLATELET COUNT 179 K/uL (156-360); RBC DIS.WIDTH-CV 18.8 % (11.8-14.6); RBC DIS.WIDTH-SD 66.2 % (39-53); WHITE BLOOD COUNT 7.5 K/uL (4.1-10.2)
[2017-01-23 06:45] LABS: ALKALINE PHOSPHATASE 101 IU/L (3-129); ANION GAP 6 MEQ/L (2-14); CHLORIDE 104 MEQ/L (99-109); GFR ESTIMATE (CALCULATED) 50 mL/min/; GLUCOSE 143 mg/dL (70-99); POTASSIUM 4.7 MEQ/L (3.7-5.4); SAMPLE HEMOLYSIS CHECK 0; SAMPLE ICTERIC CHECK 0; SAMPLE LIPEMIA CHECK 0; SODIUM 140 MEQ/L (136-147); TOTAL BILIRUBIN 0.6 MG/DL (0.0-1.0); UREA NITROGEN (BUN) 19 mg/dL (9-23)
[2017-01-23 09:26] VITALS: BP 161/99
[2017-01-23 11:51] VITALS: BP 166/85
[2017-01-23 16:38] VITALS: BP 113/65
[2017-01-24 00:41] VITALS: BP 110/65
[2017-01-24 04:06] LABS: POINT-OF-CARE METER ID UU13113725
[2017-01-24 04:39] VITALS: BP 109/58
[2017-01-24 06:14] LABS: POINT-OF-CARE METER ID UU13113725
[2017-01-24 07:12] LABS: ANION GAP 5 MEQ/L (2-14); CHLORIDE 105 MEQ/L (99-109); GFR ESTIMATE (CALCULATED) 42 mL/min/; GLUCOSE 150 mg/dL (70-99); POTASSIUM 4.4 MEQ/L (3.7-5.4); SAMPLE HEMOLYSIS CHECK 0; SAMPLE ICTERIC CHECK 0; SAMPLE LIPEMIA CHECK 0; SODIUM 140 MEQ/L (136-147); UREA NITROGEN (BUN) 16 mg/dL (9-23)
[2017-01-24 07:50] VITALS: BP 108/66
[2017-01-24 09:17] VITALS: BP 110/60
[2017-01-24 10:59] LABS: POINT-OF-CARE METER ID UU13113725
[2017-01-24 11:30] VITALS: BP 112/68
[2017-01-24 16:28] LABS: POINT-OF-CARE METER ID UU13113725
[2017-01-24 16:39] VITALS: BP 116/70
[2017-01-24 21:57] LABS: POINT-OF-CARE METER ID UU13113725
[2017-01-25 00:09] VITALS: BP 130/60
[2017-01-25 07:02] LABS: EOSINOPHIL (%) 0.6 % (0-5); EOSINOPHIL COUNT 0.1 K/uL (0-0.3); HEMATOCRIT 29.4 % (38.0-50.0); IMMATURE GRANULOCYTE (%) 0.6 % (0.0-0.7); IMMATURE GRANULOCYTE COUNT 0.1 K/uL; INSTRUMENT ABS NEUTROPHIL CT 7.2 K/uL; LYMPHOCYTE COUNT 1.4 K/uL (1.0-2.8); MCH 29.4 PG (29.0-34.0); MCHC 30.6 G/DL (30.0-36.0); MCV 96.1 FL (86-99); MEAN PLAT.VOLUME 10.4 uM^3 (9.0-12.4); MONOCYTE (%) 9.9 % (3-12); NEUTROPHIL (%) 74.6 % (45-76); NEUTROPHIL COUNT 7.2 K/uL (1.8-6.4); PLATELET COUNT 192 K/uL (156-360); RBC DIS.WIDTH-CV 19.3 % (11.8-14.6); RBC DIS.WIDTH-SD 67.5 % (39-53); RED BLOOD COUNT 3.06 M/uL (4.00-5.50); WHITE BLOOD COUNT 9.6 K/uL (4.1-10.2)
[2017-01-25 07:33] LABS: ALKALINE PHOSPHATASE 90 IU/L (3-129); ANION GAP 6 MEQ/L (2-14); CHLORIDE 110 MEQ/L (99-109); GFR ESTIMATE (CALCULATED) 44 mL/min/; POTASSIUM 4.3 MEQ/L (3.7-5.4); SAMPLE HEMOLYSIS CHECK 0; SAMPLE ICTERIC CHECK 0; SAMPLE LIPEMIA CHECK 0; SODIUM 144 MEQ/L (136-147); TOTAL BILIRUBIN 0.5 MG/DL (0.0-1.0); UREA NITROGEN (BUN) 15 mg/dL (9-23)
[2017-01-25 07:36] LABS: GLUCOSE 85 mg/dL (70-99)
[2017-01-25 08:15] VITALS: BP 133/63
[2017-01-25 09:34] LABS: POINT-OF-CARE METER ID UU13113675; POINT-OF-CARE USER ID ADMSLT55
[2017-01-25 10:30] VITALS: BP 132/88
[2017-01-25 11:37] LABS: POINT-OF-CARE METER ID UU13113725
[2017-01-25 16:19] VITALS: BP 105/54
[2017-01-25 16:38] LABS: POINT-OF-CARE METER ID UU13113725
[2017-01-26 05:57] LABS: EOSINOPHIL (%) 0 % (0-5); IMMATURE GRANULOCYTE (%) 0.6 % (0.0-0.7); INSTRUMENT ABS NEUTROPHIL CT 4.2 K/uL; LYMPHOCYTE COUNT 0.7 K/uL (1.0-2.8); MCH 29.7 PG (29.0-34.0); MCHC 30.3 G/DL (30.0-36.0); MEAN PLAT.VOLUME 10.8 uM^3 (9.0-12.4); MONOCYTE COUNT 0.5 K/uL (0-0.8); NEUTROPHIL (%) 77.9 % (45-76); NEUTROPHIL COUNT 4.2 K/uL (1.8-6.4); PLATELET COUNT 201 K/uL (156-360); RBC DIS.WIDTH-CV 19.5 % (11.8-14.6); RBC DIS.WIDTH-SD 69.9 % (39-53); RED BLOOD COUNT 2.96 M/uL (4.00-5.50); WHITE BLOOD COUNT 5.3 K/uL (4.1-10.2)
[2017-01-26 06:21] LABS: ALKALINE PHOSPHATASE 100 IU/L (3-129); ANION GAP 8 MEQ/L (2-14); CHLORIDE 109 MEQ/L (99-109); GFR ESTIMATE (CALCULATED) 37 mL/min/; GLUCOSE 194 mg/dL (70-99); POTASSIUM 5.3 MEQ/L (3.7-5.4); SAMPLE HEMOLYSIS CHECK 0; SAMPLE ICTERIC CHECK 0; SAMPLE LIPEMIA CHECK 0; SODIUM 146 MEQ/L (136-147); TOTAL BILIRUBIN 0.4 MG/DL (0.0-1.0); UREA NITROGEN (BUN) 21 mg/dL (9-23)
[2017-01-26] MEDS ORDERED: LEVEMIR100 UNIT/2 SC (07:20)
[2017-01-26] MEDS ORDERED: ENDOCET 5-3251 EACH PO (07:20)
[2017-01-26] MEDS ORDERED: VANCOCIN 250 M250 MG PO (07:20)
[2017-01-26] MEDS ORDERED: DOCUSATE SODIU100 MG PO (07:20)
[2017-01-26] MEDS ORDERED: DILTIAZEM 24HR180 MG PO (07:20)
[2017-01-26] MEDS ORDERED: DIAZEPAM5 MG PO (07:20)
[2017-01-26] MEDS ORDERED: DIGOXIN250 MCG PO (07:20)
[2017-01-26 07:42] VITALS: BP 137/66
[2017-01-26 15:45] VITALS: BP 127/59
[2017-01-26 16:33] VITALS: BP 132/70
== END 2017-01-26 19:23 | disposition home or self-care (01) | DRG 713 ==
LOC: EME 04:35 → EDOF 08:45 → 4EAST 08:45 → ENRESERV 10:14 → 4EAST 13:14 → ENRESERV 01-18 00:04 → 5EAST 01-18 00:49 → ENPENDDIS 01-26 → 5EAST 01-26 19:23
PROVIDERS: Emergency Medicine; Nurse Practitioner Adult Health; Pediatrics; Physician Assistant
DX: N41.2 Abscess of prostate (principal); E11.649 Type 2 diabetes mellitus with hypoglycemia without coma; I48.0 Paroxysmal atrial fibrillation; A04.7 Enterocolitis due to Clostridium difficile; E11.22 Type 2 diabetes mellitus with diabetic chronic kidney disease; N32.89 Other specified disorders of bladder; R33.8 Other retention of urine; N40.1 Benign prostatic hyperplasia with lower urinary tract symptoms; J44.1 Chronic obstructive pulmonary disease with (acute) exacerbation; I50.9 Heart failure, unspecified; I48.2 Chronic atrial fibrillation; N18.6 End stage renal disease; I13.2 Hypertensive heart and chronic kidney disease with heart failure and with stage 5 chronic kidney disease, or end stage renal disease; E78.5 Hyperlipidemia, unspecified; I47.2 Ventricular tachycardia; F43.21 Adjustment disorder with depressed mood; N35.9 Urethral stricture, unspecified; N99.820 Postprocedural hemorrhage of a genitourinary system organ or structure following a genitourinary system procedure; N18.3 Chronic kidney disease, stage 3 (moderate); B96.20 Unspecified Escherichia coli [E. coli] as the cause of diseases classified elsewhere; N30.90 Cystitis, unspecified without hematuria; R26.81 Unsteadiness on feet; Z87.440 Personal history of urinary (tract) infections; N42.1 Congestion and hemorrhage of prostate; Z86.19 Personal history of other infectious and parasitic diseases; Z91.14 Patient's other noncompliance with medication regimen; Z99.81 Dependence on supplemental oxygen; Z91.19 Patient's noncompliance with other medical treatment and regimen; Z86.73 Personal history of transient ischemic attack (TIA), and cerebral infarction without residual deficits; Z79.4 Long term (current) use of insulin
CPT/HCPCS: 71010; 74176; 80053; 80069; 80162; 81003; 82947; 82948; 83690; 83880; 84484; 85025; 85027; 85610; 85730; 87040; 87077; 87086; 87186; 87493; 87801; 88305; 88342 TC; 93005; 94640; 94799; 99202; 99281; 99285; C1758; C1769; J0131; J0330; J1100; J1160; J1335; J1650; J1815; J1940; J2250; J2270; J2405; J2543; J3010; J7030; J7050; J7120; S0030

== ENCOUNTER 2017-01-30 07:08 | Inpatient (IN) | payer OTHER ==
[~2017-01-30] VITALS: Ht 157.5 cm; Wt 48.2 kg
[~2017-01-30 07:08] MED LIST changes: +DIAZEPAM5 MG PO; +ENDOCET 5-3251 EACH PO; +METOPROLOL SUCC50 MG PO; +VANCOCIN 250 M250 MG PO
[2017-01-30 08:15] LABS: EOSINOPHIL (%) 3.9 % (0-5); EOSINOPHIL COUNT 0.3 K/uL (0-0.3); HEMATOCRIT 31.4 % (38.0-50.0); IMMATURE GRANULOCYTE (%) 0.7 % (0.0-0.7); IMMATURE GRANULOCYTE COUNT 0.1 K/uL; INSTRUMENT ABS NEUTROPHIL CT 4.8 K/uL; LYMPHOCYTE COUNT 1.4 K/uL (1.0-2.8); MCH 29.6 PG (29.0-34.0); MCHC 31.2 G/DL (30.0-36.0); MCV 94.9 FL (86-99); MEAN PLAT.VOLUME 11.3 uM^3 (9.0-12.4); MONOCYTE (%) 13.4 % (3-12); NEUTROPHIL (%) 63.2 % (45-76); NEUTROPHIL COUNT 4.8 K/uL (1.8-6.4); RBC DIS.WIDTH-SD 69.5 % (39-53); RED BLOOD COUNT 3.31 M/uL (4.00-5.50); WHITE BLOOD COUNT 7.6 K/uL (4.1-10.2)
[2017-01-30 08:18] LABS: PLATELET COUNT 276 K/uL (156-360)
[2017-01-30 08:21] LABS: INTER. NORMALIZED RATIO 2.1
[2017-01-30 08:57] LABS: PROTHROMBIN TIME 23.4 SEC (10.2-12.9)
[2017-01-30 09:34] LABS: ADD MIUA? YES; BILIRUBIN NEGATIVE; BLOOD LARGE; GLUCOSE (STRIP) NEGATIVE; KETONES NEGATIVE; LEUKOCYTES TRACE; NITRITE NEGATIVE; PROTEIN (STRIP) 30; SPECIFIC GRAVITY 1.005 (1.000-1.030); UROBILINOGEN 0.2 MG/DL (0.2-1.0)
[2017-01-30 09:38] LABS: COLOR RED ((YELLOW))
[2017-01-30 10:07] LABS: BACTERIA RARE /HPF; EPITHELIAL CELLS 1+ /HPF; MUCUS NONE SEEN /LPF; RED BLOOD CELLS TNTC /HPF (0-5); UCUL ADDED? YES; UNCLASSIFIED CRYSTALS 2+ /HPF; WHITE BLOOD CELLS 0-5 /HPF (0-5)
[2017-01-30 11:04] LABS: DIGOXIN 1.1 ng/mL (0.8-2.0)
[2017-01-30 11:12] LABS: CHLORIDE 109 mEq/L (99-109); POTASSIUM 4.5 mEq/L (3.7-5.4); SODIUM 142 mEq/L (136-147)
[2017-01-30 11:14] LABS: GLUCOSE 177 mg/dL (70-99)
[2017-01-30 11:15] LABS: ANION GAP 14 MEQ/L (2-14)
[2017-01-30 11:16] LABS: TOTAL BILIRUBIN 0.9 mg/dL (0.0-1.0)
[2017-01-30 11:18] LABS: ALKALINE PHOSPHATASE 129 IU/L (3-129); GFR ESTIMATE (CALCULATED) 39 mL/min/
[2017-01-30 11:19] LABS: UREA NITROGEN (BUN) 18 mg/dL (9-23)
[2017-01-30] MEDS ORDERED: VANCOCIN 250 M250 MG PO (12:27)
[2017-01-30 19:15] VITALS: BP 133/95
[2017-01-30 20:57] LABS: POINT-OF-CARE METER ID UU13113725
[2017-01-30 23:36] VITALS: BP 141/85
[2017-01-31 02:59] VITALS: BP 100/62
[2017-01-31 05:56] LABS: POINT-OF-CARE METER ID UU13113725
[2017-01-31 06:51] LABS: HEMATOCRIT 29.8 % (38.0-50.0); MCH 30.1 PG (29.0-34.0); MCHC 30.9 G/DL (30.0-36.0); MCV 97.4 FL (86-99); MEAN PLAT.VOLUME 10.1 uM^3 (9.0-12.4); PLATELET COUNT 219 K/uL (156-360); RBC DIS.WIDTH-CV 19.5 % (11.8-14.6); RBC DIS.WIDTH-SD 69.6 % (39-53); RED BLOOD COUNT 3.06 M/uL (4.00-5.50); WHITE BLOOD COUNT 9.6 K/uL (4.1-10.2)
[2017-01-31 07:16] LABS: ANION GAP 8 MEQ/L (2-14); CHLORIDE 106 MEQ/L (99-109); GFR ESTIMATE (CALCULATED) 39 mL/min/; GLUCOSE 142 mg/dL (70-99); POTASSIUM 4.7 MEQ/L (3.7-5.4); SAMPLE HEMOLYSIS CHECK 0; SAMPLE ICTERIC CHECK 0; SAMPLE LIPEMIA CHECK 0; SODIUM 141 MEQ/L (136-147); UREA NITROGEN (BUN) 20 mg/dL (9-23)
[2017-01-31 07:48] VITALS: BP 105/59
[2017-01-31 12:19] LABS: POINT-OF-CARE METER ID UU13113725
[2017-01-31 13:02] VITALS: BP 122/57; BP 177/100
[2017-01-31 15:12] VITALS: BP 122/78
[2017-01-31 16:36] LABS: POINT-OF-CARE METER ID UU13113725
[2017-01-31 18:55] VITALS: BP 142/93
[2017-01-31 21:11] LABS: POINT-OF-CARE METER ID UU13113725
[2017-01-31 22:42] VITALS: BP 124/72
[2017-02-01 03:50] VITALS: BP 117/91
[2017-02-01 05:48] LABS: POINT-OF-CARE METER ID UU13113725
[2017-02-01 06:23] LABS: POINT-OF-CARE METER ID UU13113725
[2017-02-01 06:30] LABS: NRBC (%) 0.2 /100 WBC (0-0); RBC DIS.WIDTH-SD 75.6 % (39-53); WHITE BLOOD COUNT 8.9 K/uL (4.1-10.2)
[2017-02-01 06:44] LABS: ANION GAP 8 MEQ/L (2-14); CHLORIDE 109 MEQ/L (99-109); GFR ESTIMATE (CALCULATED) 32 mL/min/; SAMPLE HEMOLYSIS CHECK 0; SAMPLE ICTERIC CHECK 0; SAMPLE LIPEMIA CHECK 0; SODIUM 144 MEQ/L (136-147); UREA NITROGEN (BUN) 25 mg/dL (9-23)
[2017-02-01 06:47] LABS: GLUCOSE 53 mg/dL (70-99)
[2017-02-01 06:58] LABS: MCV 103.3 FL (86-99); PLATELET COUNT 148 K/uL (156-360)
[2017-02-01 06:59] LABS: MEAN PLAT.VOLUME 11.7 uM^3 (9.0-12.4)
[2017-02-01 07:22] VITALS: BP 108/63
[2017-02-01 07:38] LABS: POINT-OF-CARE METER ID UU13113725; POINT-OF-CARE USER ID 608261329
[2017-02-01 08:56] LABS: POINT-OF-CARE METER ID UU13113725
[2017-02-01 11:29] LABS: POINT-OF-CARE METER ID UU13113725
[2017-02-01 16:03] LABS: POINT-OF-CARE METER ID UU13113725
[2017-02-01 17:44] LABS: POINT-OF-CARE METER ID UU13113725
[2017-02-01 17:59] LABS: POINT-OF-CARE METER ID UU13113725
[2017-02-01 18:35] LABS: POINT-OF-CARE METER ID UU13113725
[2017-02-01 19:06] VITALS: BP 129/67
[2017-02-01 19:18] LABS: POINT-OF-CARE METER ID UU13113725
[2017-02-01 21:00] LABS: POINT-OF-CARE METER ID UU13113725
[2017-02-01 22:33] VITALS: BP 134/79
[2017-02-02 02:43] VITALS: BP 180/83
[2017-02-02 05:33] LABS: POINT-OF-CARE METER ID UU13113725
[2017-02-02 06:59] LABS: MCH 30.1 PG (29.0-34.0); MCHC 30.4 G/DL (30.0-36.0); RBC DIS.WIDTH-CV 19.6 % (11.8-14.6); RBC DIS.WIDTH-SD 71.4 % (39-53); RED BLOOD COUNT 2.82 M/uL (4.00-5.50)
[2017-02-02 07:00] LABS: MCV 99.3 FL (86-99); PLATELET COUNT 237 K/uL (156-360)
[2017-02-02 07:13] LABS: ANION GAP 8 MEQ/L (2-14); CHLORIDE 110 MEQ/L (99-109); GFR ESTIMATE (CALCULATED) 36 mL/min/; GLUCOSE 66 mg/dL (70-99); SAMPLE HEMOLYSIS CHECK 0; SAMPLE ICTERIC CHECK 0; SAMPLE LIPEMIA CHECK 0; SODIUM 147 MEQ/L (136-147); UREA NITROGEN (BUN) 24 mg/dL (9-23)
[2017-02-02 07:35] LABS: POINT-OF-CARE METER ID UU13113725
[2017-02-02 07:52] VITALS: BP 140/73
[2017-02-02 11:00] LABS: POINT-OF-CARE METER ID UU13113725
[2017-02-02 11:23] VITALS: BP 138/78
[2017-02-02 16:16] LABS: POINT-OF-CARE METER ID UU13113725
[2017-02-02 16:27] VITALS: BP 110/58
[2017-02-02 21:42] LABS: POINT-OF-CARE METER ID UU13113725
[2017-02-02 23:28] VITALS: BP 127/73
[2017-02-03 04:14] VITALS: BP 134/82
[2017-02-03 06:34] LABS: POINT-OF-CARE METER ID UU13113725
[2017-02-05 15:24] LABS: POINT-OF-CARE METER ID UU13113725
== END 2017-02-03 11:54 | disposition hospice, home (50) | DRG 920 ==
LOC: EME 07:08 → 5EAST 13:49 → EDOF 13:49 → ENRESERV 13:50 → 5EAST 17:23 → ENPENDDIS 02-03 → 5EAST 02-03 11:54
PROVIDERS: Pediatrics; Physician Assistant
PROC: 0T2BX0Z Change Drainage Device in Bladder, External Approach (ICD-10-PCS; principal; 2017-01-30)
DX: N99.820 Postprocedural hemorrhage of a genitourinary system organ or structure following a genitourinary system procedure (principal); Y84.6 Urinary catheterization as the cause of abnormal reaction of the patient, or of later complication, without mention of misadventure at the time of the procedure; R10.2 Pelvic and perineal pain; G89.18 Other acute postprocedural pain; I48.0 Paroxysmal atrial fibrillation; E11.649 Type 2 diabetes mellitus with hypoglycemia without coma; A04.7 Enterocolitis due to Clostridium difficile; E11.22 Type 2 diabetes mellitus with diabetic chronic kidney disease; I12.9 Hypertensive chronic kidney disease with stage 1 through stage 4 chronic kidney disease, or unspecified chronic kidney disease; N18.4 Chronic kidney disease, stage 4 (severe); I50.42 Chronic combined systolic (congestive) and diastolic (congestive) heart failure; R41.0 Disorientation, unspecified; R29.6 Repeated falls; Z66 Do not resuscitate; J44.9 Chronic obstructive pulmonary disease, unspecified; E78.5 Hyperlipidemia, unspecified; F32.9 Major depressive disorder, single episode, unspecified; Z87.440 Personal history of urinary (tract) infections; Z86.73 Personal history of transient ischemic attack (TIA), and cerebral infarction without residual deficits; Z79.01 Long term (current) use of anticoagulants; Z79.4 Long term (current) use of insulin; Z72.0 Tobacco use; Z91.19 Patient's noncompliance with other medical treatment and regimen
CPT/HCPCS: 71020; 74020; 80053; 80069; 80162; 81003; 82948; 85025; 85027; 85610; 87086; 94799; 99202; 99281; 99285; J1815; J2270; J3010; J7030

== ENCOUNTER 2017-11-04 06:39 | Emergency (ER) | payer OTHER ==
[~2017-11-04] VITALS: Ht 157.5 cm; Wt 81.3 kg
[2017-11-04 07:31] LABS: BASOPHIL (%) 0.4 % (0-1); EOSINOPHIL (%) 1.6 % (0-5); EOSINOPHIL COUNT 0.1 K/uL (0-0.3); HEMATOCRIT 36.8 % (38.0-50.0); HEMOGLOBIN 12.1 G/DL (12.5-16.6); IMMATURE GRANULOCYTE (%) 0.2 % (0.0-0.7); LYMPHOCYTE (%) 16.2 % (15-42); LYMPHOCYTE COUNT 0.9 K/uL (1.0-2.8); MCH 31.3 PG (29.0-34.0); MCHC 32.9 G/DL (30.0-36.0); MCV 95.3 FL (86-99); MONOCYTE (%) 16.5 % (3-12); MONOCYTE COUNT 0.9 K/uL (0-0.8); NEUTROPHIL (%) 65.1 % (45-76); NEUTROPHIL COUNT 3.7 K/uL (1.8-6.4); PLATELET COUNT 114 K/uL (156-360); RBC DIS.WIDTH-SD 63.1 % (39-53); RED BLOOD COUNT 3.86 M/uL (4.00-5.50); WHITE BLOOD COUNT 5.7 K/uL (4.1-10.2)
[2017-11-04 07:37] LABS: INTER. NORMALIZED RATIO 1.2
[2017-11-04 07:39] LABS: PTT 32.4 SEC (25-37)
[2017-11-04 08:02] LABS: ALBUMIN 3.8 G/DL (3.2-4.8); ALKALINE PHOSPHATASE 112 IU/L (3-129); ALT (GPT) 11 IU/L (3-49); AST (GOT) 19 IU/L (2-34); CHLORIDE 108 MEQ/L (99-109); CREATININE 2.2 MG/DL (0.6-1.3); GFR ESTIMATE (CALCULATED) 39 mL/min/ (58.99-99999); GLUCOSE 99 mg/dL (70-99); POTASSIUM 4.7 MEQ/L (3.7-5.4); SODIUM 140 MEQ/L (136-147); TOTAL PROTEIN 6.9 G/DL (6.4-8.3); UREA NITROGEN (BUN) 36 mg/dL (9-23)
[2017-11-04 08:04] LABS: TROP-I INTERPRETATION NEGATIVE; TROPONIN-I 0.07 ng/mL (0.0-0.30)
[2017-11-04 10:19] LABS: TROP-I INTERPRETATION NEGATIVE; TROPONIN-I 0.06 ng/mL (0.0-0.30)
[2017-11-04] MEDS ORDERED: ZOFRAN4 MG PO (10:55)
[2017-11-04] MEDS ORDERED: AUGMENTIN875 MG PO (10:55)
[2017-11-04] MEDS ORDERED: PERCOCET 5/31 TABLET PO (10:55)
[2017-11-04 11:14] VITALS: BP 181/89
== END 2017-11-04 11:18 | disposition home or self-care (01) ==
LOC: EME 06:39
PROVIDERS: Emergency Medicine
DX: K80.20 Calculus of gallbladder without cholecystitis without obstruction (principal); I13.0 Hypertensive heart and chronic kidney disease with heart failure and stage 1 through stage 4 chronic kidney disease, or unspecified chronic kidney disease; E11.22 Type 2 diabetes mellitus with diabetic chronic kidney disease; N18.9 Chronic kidney disease, unspecified; I50.9 Heart failure, unspecified; Z79.4 Long term (current) use of insulin; J44.9 Chronic obstructive pulmonary disease, unspecified; Z86.73 Personal history of transient ischemic attack (TIA), and cerebral infarction without residual deficits; I48.91 Unspecified atrial fibrillation; E78.5 Hyperlipidemia, unspecified; Z95.0 Presence of cardiac pacemaker; Z99.81 Dependence on supplemental oxygen; Z72.0 Tobacco use
CPT/HCPCS: 71045; 76705; 80053; 81003; 83690; 84484; 85025; 85027; 85610; 85730; 93005; 94640; 99281; 99284

== ENCOUNTER 2017-12-13 00:31 | Inpatient (IN) | payer OTHER ==
[~2017-12-13] VITALS: Ht 157.5 cm; Wt 70.5 kg
[~2017-12-13 00:31] MED LIST changes: +AUGMENTIN875 MG PO; +PERCOCET 5/31 TABLET PO; +ZOFRAN4 MG PO
[2017-12-13 01:02] LABS: BASOPHIL (%) 0.3 % (0-1); EOSINOPHIL (%) 0.4 % (0-5); HEMATOCRIT 40.2 % (38.0-50.0); HEMOGLOBIN 13.9 G/DL (12.5-16.6); IMMATURE GRANULOCYTE (%) 0.3 % (0.0-0.7); LYMPHOCYTE (%) 9.1 % (15-42); LYMPHOCYTE COUNT 0.7 K/uL (1.0-2.8); MCH 31.1 PG (29.0-34.0); MCHC 34.6 G/DL (30.0-36.0); MCV 89.9 FL (86-99); MONOCYTE (%) 11.7 % (3-12); MONOCYTE COUNT 0.9 K/uL (0-0.8); NEUTROPHIL (%) 78.2 % (45-76); NEUTROPHIL COUNT 6.1 K/uL (1.8-6.4); PLATELET COUNT 171 K/uL (156-360); RBC DIS.WIDTH-CV 13.7 % (11.8-14.6); RBC DIS.WIDTH-SD 45.1 % (39-53); RED BLOOD COUNT 4.47 M/uL (4.00-5.50); WHITE BLOOD COUNT 7.7 K/uL (4.1-10.2)
[2017-12-13 01:14] LABS: INTER. NORMALIZED RATIO 1.2
[2017-12-13 01:17] LABS: PTT 28.8 SEC (25-37)
[2017-12-13 01:26] LABS: ALBUMIN 3.8 G/DL (3.2-4.8); ALKALINE PHOSPHATASE 125 IU/L (3-129); ALT (GPT) 6 IU/L (3-49); AST (GOT) 10 IU/L (2-34); CHLORIDE 96 MEQ/L (99-109); DIRECT BILIRUBIN 0.3 mg/dL (0.0-0.3); LIPASE 22 U/L (1.0-51.0); POTASSIUM 3.9 MEQ/L (3.7-5.4); SODIUM 133 MEQ/L (136-147); TOTAL BILIRUBIN 1.5 MG/DL (0.0-1.0); TOTAL PROTEIN 7.2 G/DL (6.4-8.3); UREA NITROGEN (BUN) 30 mg/dL (9-23)
[2017-12-13 01:28] LABS: TROP-I INTERPRETATION NEGATIVE; TROPONIN-I 0.09 ng/mL (0.0-0.30)
[2017-12-13 01:43] LABS: GLUCOSE 440 mg/dL (70-99)
[2017-12-13 02:21] LABS: CARBON DIOXIDE (BICARBONATE) 26.8 MEQ/L (20-31)
[2017-12-13 03:27] LABS: APPEARANCE CLEAR ((CLEAR)); BILIRUBIN NEGATIVE; BLOOD MODERATE; COLOR YELLOW ((YELLOW)); GLUCOSE (STRIP) >=500; KETONES NEGATIVE; LEUKOCYTES NEGATIVE; NITRITE NEGATIVE; PROTEIN (STRIP) >=500; SPECIFIC GRAVITY 1.027 (1.000-1.030); UROBILINOGEN 0.2 MG/DL (0.2-1.0)
[2017-12-13 03:32] LABS: BACTERIA NONE SEEN /HPF; EPITHELIAL CELLS RARE /HPF; MUCUS TRACE /LPF; RED BLOOD CELLS 0-5 /HPF (0-5); UCUL ADDED? YES
[2017-12-13 04:05] LABS: CREATININE 2.4 MG/DL (0.6-1.3); GFR ESTIMATE (CALCULATED) 36 mL/min/ (58.99-99999); SERUM ETHYL ALCOHOL < 10 mg/dL
[2017-12-13 05:00] LABS: AMPHETAMINE NEGATIVE (500 ng/mL); BARBITURATES NEGATIVE (200 ng/mL); BENZODIAZEPINES NEGATIVE (150 ng/mL); BUPRENORPHINE NEGATIVE (10 ng/mL); COCAINE NEGATIVE (150 ng/mL); METHADONE NEGATIVE (200 ng/mL); METHAMPHETAMINE NEGATIVE (500 ng/mL); OPIATES (MORPHINE) NEGATIVE (100 ng/mL); OXYCODONE NEGATIVE (100 ng/mL); PHENCYCLIDINE NEGATIVE (25 ng/mL); PROPOXYPHENE NEGATIVE (300 ng/mL); THC CANNABINOIDS NEGATIVE (50 ng/mL); TRICYCLIC ANTIDEPRESSANTS NEGATIVE (300 ng/mL)
[2017-12-13 05:27] LABS: DIGOXIN < 0.3 ng/mL (0.8-2.0)
[2017-12-13] MEDS ORDERED: TOPROL XL25 MG PO (06:13)
[2017-12-13] MEDS ORDERED: ALDACTONE25 MG PO (06:14)
[2017-12-13] MEDS ORDERED: COZAAR50 MG PO (06:15)
[2017-12-13] MEDS ORDERED: BIDIL1 TABLET PO (06:15)
[2017-12-13] MEDS ORDERED: LANTUS 10100 UNITS/ SC (06:16)
[2017-12-13] MEDS ORDERED: DUONEB 2.5-0.5 M3 ML AEROSOL (06:17)
[2017-12-13 07:21] LABS: HDL CHOLESTEROL 72 MG/DL (Desirable>=40); LDL CHOLESTEROL 80 mg/dL (Desirable<100); NON-HDL CHOLESTEROL 96 mg/dL (Desirable<160); TOTAL CHOLESTEROL 168 mg/dL (Desirable<200); TRIGLYCERIDES 82 MG/DL (Normal: <150)
[2017-12-13 07:34] VITALS: BP 181/98
[2017-12-13 10:01] LABS: TROP-I INTERPRETATION NEGATIVE; TROPONIN-I 0.14 ng/mL (0.0-0.30)
[2017-12-13 11:00] VITALS: BP 199/95
[2017-12-13 11:45] LABS: HEMATOCRIT 38.2 % (38.0-50.0); HEMOGLOBIN 12.5 G/DL (12.5-16.6); MCH 30.5 PG (29.0-34.0); MCHC 32.7 G/DL (30.0-36.0); MCV 93.2 FL (86-99); PLATELET COUNT 135 K/uL (156-360); RBC DIS.WIDTH-SD 47.8 % (39-53); WHITE BLOOD COUNT 7.9 K/uL (4.1-10.2)
[2017-12-13 12:05] LABS: ALBUMIN 3.1 G/DL (3.2-4.8); ALT (GPT) 5 IU/L (3-49); AST (GOT) 14 IU/L (2-34); CHLORIDE 103 MEQ/L (99-109); GFR ESTIMATE (CALCULATED) 44 mL/min/ (58.99-99999); GLUCOSE 228 mg/dL (70-99); POTASSIUM 4.4 MEQ/L (3.7-5.4); SODIUM 137 MEQ/L (136-147); TOTAL BILIRUBIN 1.6 MG/DL (0.0-1.0); UREA NITROGEN (BUN) 24 mg/dL (9-23)
[2017-12-13 12:10] LABS: ALKALINE PHOSPHATASE 94 IU/L (3-129); TOTAL PROTEIN 5.9 G/DL (6.4-8.3)
[2017-12-13 14:39] LABS: TROP-I INTERPRETATION NEGATIVE; TROPONIN-I 0.12 ng/mL (0.0-0.30)
[2017-12-13 15:03] VITALS: BP 144/75
[2017-12-13 19:21] LABS: GLUCOSE 440 mg/dL (70-99)
[2017-12-13 20:30] VITALS: BP 138/71
[2017-12-14] VITALS: BP 150/82
[2017-12-14 04:30] VITALS: BP 131/86
[2017-12-14 07:22] VITALS: BP 178/93
[2017-12-14] MEDS ORDERED: ALDACTONE25 MG PO (09:53)
[2017-12-14] MEDS ORDERED: ALLOPURINOL100 MG PO (09:53)
[2017-12-14] MEDS ORDERED: BIDIL1 TABLET PO (09:53)
[2017-12-14] MEDS ORDERED: COZAAR50 MG PO (09:53)
[2017-12-14] MEDS ORDERED: TOPROL XL25 MG PO (09:53)
[2017-12-14] MEDS ORDERED: HUMALOG100 UNIT/2 SC (09:53)
[2017-12-14] MEDS ORDERED: LEVETIRACETAM500 MG PO (09:53)
[2017-12-14] MEDS ORDERED: LANTUS 10100 UNITS/ SC (09:53)
[2017-12-14 10:49] LABS: HEMOGLOBIN A1c (GLYCOHEMOGLOB) 10.5 % (Below 5.7)
[2017-12-14 11:30] VITALS: BP 133/82
[2017-12-14 15:39] VITALS: BP 136/86
== END 2017-12-14 16:21 | disposition home health service (06) | DRG 101 ==
LOC: EME → EDBD 00:31 → EDOF 04:44 → 5SOUTH 07:13
PROVIDERS: Emergency Medicine; Hospitalist; Internal Medicine
DX: R56.9 Unspecified convulsions (principal); I67.4 Hypertensive encephalopathy; I48.2 Chronic atrial fibrillation; G47.33 Obstructive sleep apnea (adult) (pediatric); N18.3 Chronic kidney disease, stage 3 (moderate); J44.9 Chronic obstructive pulmonary disease, unspecified; E87.1 Hypo-osmolality and hyponatremia; Z95.0 Presence of cardiac pacemaker; Z86.73 Personal history of transient ischemic attack (TIA), and cerebral infarction without residual deficits; E11.22 Type 2 diabetes mellitus with diabetic chronic kidney disease; E11.65 Type 2 diabetes mellitus with hyperglycemia; I50.32 Chronic diastolic (congestive) heart failure; I13.0 Hypertensive heart and chronic kidney disease with heart failure and stage 1 through stage 4 chronic kidney disease, or unspecified chronic kidney disease; F17.200 Nicotine dependence, unspecified, uncomplicated; Z79.4 Long term (current) use of insulin; E87.2 Acidosis; Z79.01 Long term (current) use of anticoagulants; Z91.14 Patient's other noncompliance with medication regimen
CPT/HCPCS: 70450; 71045; 80048; 80048 91; 80053; 80061; 80076; 80162; 81003; 82010; 82140; 82803; 82948; 83036; 83605; 83690; 83880; 84484; 84999; 85025; 85027; 85610; 85730; 87040; 87086 GA; 92523 GN; 92610 GN; 93005; 93880; 94799; 99281; 99285; C1753; G0480; J0360; J1644; J1815; J7030